=== PATIENT | female | born 1965 | race Caucasian/White ===

== ENCOUNTER 2016-07-13 12:39 | Emergency (ER) | payer OTHER ==
[2016-07-13 14:52] VITALS: BP 131/68
--- NOTE | 2016-07-13 14:52 | RAD ---
Indication: Trauma, neck injury. 4 views of lumbar spine demonstrates disc space narrowing at C5-C6. Vertebral bodies otherwise appear normal in height and alignment. Spinal canal appears grossly intact. IMPRESSION: Degenerative disc disease at C5-C6 with ventral osteophyte formation.
--- NOTE | 2016-07-13 14:53 | RAD ---
INDICATION: Left ankle trauma. TECHNIQUE: 3 views of the left ankle were obtained. FINDINGS: There is diffuse soft tissue swelling present. There are chronic posttraumatic changes within the distal tibia and fibula. No acute fracture is seen. There is severe osteoarthritic change in the tibiotalar joint. IMPRESSION: CHRONIC POSTTRAUMATIC CHANGE AND SEVERE OSTEOARTHRITIC CHANGE, NO EVIDENCE FOR ACUTE FRACTURE.
--- NOTE | 2016-07-13 14:53 | RAD ---
Indication: Left shoulder pain. Fall. 3 views of left shoulder demonstrates no fracture. No other bone or joint abnormality is noted. IMPRESSION: No fracture of the left shoulder is noted.
--- NOTE | 2016-07-13 14:55 | RAD ---
INDICATION: Left wrist injury. TECHNIQUE: 3 views of the left wrist were obtained. FINDINGS: There is diffuse soft tissue swelling. The bones are in normal alignment. No fracture is seen. Incidental note is made of mild osteoarthritic change in the first carpal metacarpal joint. IMPRESSION: NO EVIDENCE FOR FRACTURE, IF THE PATIENT'S SYMPTOMS PERSIST, RECOMMEND FOLLOW-UP IMAGING.
--- NOTE | 2016-07-13 14:55 | RAD ---
Indication: Left elbow injury. 4 views of left elbow demonstrates no definite fracture. There is an exostosis arising from the ventral aspect of the distal humerus. Fragmentation and calcification just distal to the olecranon process is noted which is likely due to sequela from degeneration or prior injury. IMPRESSION: No fracture is identified. Exostosis arising from the ventral aspect of the distal humerus. Probable loose bodies or sequela from prior injury with bony structures adjacent to the olecranon process. No joint effusion is noted.
--- NOTE | 2016-07-13 15:55 | UC ---
Minor Trauma HPI - HPI Summary HPI Summary: FALL THIS MORNING ONTO CONCRETE FLOOR, FALL ONTO LEFT SIDE. SINCE TIME OF INJURY HAS HAD LEFT SHOULDER, LEFT ANKLE, LEFT ELBOW AND LEFT WRIST PAIN. ELBOW AND ANKLE ARE WORSE. NO BRUISING OR SWELLING NOTICED. NO HEAD INJURY. MILD NECK PAIN, RADIATES TO LEFT SHOULDER. - History of Current Complaint Chief Complaint: UCUpperExtremity Stated Complaint: LEFT ELBOW PAIN (FALL) Time Seen by Provider: 07/13/16 13:54 Hx Obtained From: Patient, Family/Saw Straightener Hx Last Menstrual Period: irregular, Redd time was last one, is on progesterone for fibriods Onset/Duration: Sudden Onset, Lasting Hours, Still Present Onset Of Pain: Post Accident Severity Initially: Moderate Severity Currently: Moderate Mechanism Of Injury: Fall From A Standing Position, Twisted Aggravating Factor(s): Ambulation, Movement, Weight Bearing Alleviating Factor(s): Ice, OTC Meds, Rest Associated Signs And Symptoms: Negative: Loss Of Consciousness, Ecchymosis, Swelling - Risk Factors Penetrating Injury Risk Factors: Negative - Allergies/Home Medications Allergies/Adverse Reactions: Allergies Allergy/AdvReac Type Severity Reaction Status Date / Time Dust Mite Extract Allergy Unknown Verified 07/13/16 13:12 Reaction Details Milk Protein Extract Allergy Unknown Verified 07/13/16 13:12 [From Spiriva] Reaction Details Tiotropium [From Spiriva] Allergy Unknown Verified 07/13/16 13:12 Reaction Details Home Medications: Home Medications ALPRAZolam TAB* [Xanax TAB*] 0.5 mg PO BID PRN 07/13/16 [History Confirmed 07/13] Acetaminophen [Tylenol 8 Hour Arthritis] 650 mg PO DAILY PRN 07/13/16 [History Confirmed 07/13/16] Amitriptyline TAB* [Elavil TAB*] 100 mg PO BEDTIME 07/13/16 [History Confirmed 07/13/16] Cevimeline(NF) [Evoxac(NF)] 30 mg PO BID 07/13/16 [History Confirmed 07/13/16] Cyclobenzaprine TAB* [Flexeril 10 MG TAB*] 10 mg PO TID PRN 07/13/16 [History Confirmed 07/13/16] Ergocalciferol [Vitamin D2] 50,000 unit PO WEEKLY 07/13/16 [History Confirmed ] Ferrous Gluconate TAB* [Fergon TAB*] 325 mg PO BID 07/13/16 [History Confirmed 07/13/16] Gabapentin CAP(*) [Neurontin 300 CAP(*)] 300 mg PO TID 07/13/16 [History Confirmed 07/13/16] Hydrochlorothiazide TAB* [Hydrodiuril TAB*] 12.5 mg PO DAILY 07/13/16 [History Confirmed 07/13/16] Hyoscyamine Sulfate [Hyoscyamine Sulfate Sr] 0.375 mg PO DAILY 07/13/16 [ History Confirmed 07/13/16] Ipratropium HFA INHALER* [Atrovent Hfa Inhaler*] 2 puff INH QID 07/13/16 [ History Confirmed 07/13/16] Letrozole 2.5 mg PO DAILY 07/13/16 [History Confirmed 07/13/16] Levothyroxine TAB* [Synthroid TAB*] 200 mcg PO DAILY 07/13/16 [History Confirmed 07/13/16] Liraglutide [Victoza] 1 dose SUBCUT SEE INSTRUCTIONS 07/13/16 [History Confirmed 07/13/16] Mometasone NASAL (NF) [Nasonex (NF)] 2 spray NA DAILY 07/13/16 [History Confirmed 07/13/16] Mometasone/Formoter 200/5 MDI* [Dulera 200/5 MDI*] 2 puff INH BID 07/13/16 [ History Confirmed 07/13/16] NIFEdipine ER TAB* [Procardia Xl TAB*] 30 mg PO DAILY 07/13/16 [History Confirmed 07/13/16] Propranolol TAB* [Inderal TAB*] 20 mg PO BID 07/13/16 [History Confirmed ] Ranitidine HCl [Ranitidine Maximum Streng] 300 mg PO BEDTIME 07/13/16 [History Confirmed 07/13/16] Reguldid 2 cap PO AC 07/13/16 [History Confirmed 07/13/16] Spironolactone TAB* [Aldactone TAB*] 50 mg PO DAILY 07/13/16 [History Confirmed 07/13/16] buPROPion SR TAB* [Wellbutrin SR TAB*] 150 mg PO BID 07/13/16 [History Confirmed 07/13/16] busPIRone TAB* [Buspar TAB*] 10 mg PO TID 07/13/16 [History Confirmed 07/13/16] celeCOXIB CAP* [CeleBREX CAP*] 200 mg PO BID 07/13/16 [History Confirmed ] medroxyPROGESTERone TAB* [Provera TAB*] 10 mg PO BID 07/13/16 [History Confirmed 07/13/16] traMADol TAB* [Ultram*] 50 mg PO Q6HR PRN 07/13/16 [History Confirmed 07/13/16] PMH/Surg Hx/FS Hx/Imm Hx Previously Healthy: Yes Endocrine History Of: Reports: Diabetes - non insulin, Thyroid Disease - hypothyroid Cardiovascular History Of: Reports: Hypertension Respiratory History Of: Reports: Asthma - Surgical History Surgical History: Yes Surgery Procedure, Year, and Place: cataracts ages [age], and 8. 2000: Uvula removed and shortened top palate for sleep apnea: [place]. 2006: Gallbladder : Dr Brenda [facility]. 2016: Ulnar nerve: Dr Romero [facility]. 2015: T&A and hyoid suspension: Dr Kodi [facility]. 2015: repair incarcerated hernia: Dr Nash [facility]. 2015: Nasal surgery to open nostril: Dr Kodi [facility]. D&C x2: Dr Witt. Eye lens replacement: [place] - Family History Known Family History: Positive: Cardiac Disease - Social History Lives: With Family Alcohol Use: None Substance Use Type: None Smoking Status (MU): Never Smoked Tobacco - Immunization History Most Recent Influenza Vaccination: 01/2016 Most Recent Pneumonia Vaccination: had once about 2014 Review of Systems Constitutional: Negative Skin: Bruising Eyes: Negative ENT: Negative Respiratory: Negative Cardiovascular: Negative Gastrointestinal: Negative Genitourinary: Negative Motor: Negative Neurovascular: Negative Musculoskeletal: Arthralgia - LEFT ANKLE LEFT SHOULDER LEFT ELBOW, Myalgia Neurological: Negative Psychological: Negative All Other Systems Reviewed And Are Negative: Yes Physical Exam Triage Information Reviewed: Yes Appearance: Well-Appearing, No Pain Distress, Well-Nourished, Obese Vital Signs: Initial Vital Signs Temp 96.8 F 07/13/16 13:01 Pulse 89 07/13/16 13:01 Resp 14 07/13/16 13:01 BP 131/66 07/13/16 13:01 Pulse Ox 100 07/13/16 13:01 Vital Signs Reviewed: Yes Eye Exam: Normal Eyes: Positive: Conjunctiva Clear ENT Exam: Normal ENT: Positive: Normal ENT inspection, Hearing grossly normal, Pharynx normal, TMs normal Dental Exam: Normal Neck exam: Normal Neck: Positive: Supple, Nontender, No Lymphadenopathy Respiratory Exam: Normal Respiratory: Positive: Chest non-tender, Lungs clear, Normal breath sounds, No respiratory distress, No accessory muscle use Cardiovascular Exam: Normal Cardiovascular: Positive: RRR, No Murmur, Pulses Normal, Brisk Capillary Refill Abdominal Exam: Normal Abdomen Description: Positive: Nontender, No Organomegaly Musculoskeletal: Positive: ROM Intact, Strength Limited @ - LEFT ELBOW; LEFT ANKLE., Other: - LEFT NECK PAIN RADIATES TO SHOULDER, LEFT ELBOW PAIN, LEFT ANKLE PAIN. Neurological Exam: Normal Psychological Exam: Normal Psychological: Positive: Normal Response To Family Skin Exam: Normal UC Physical Exam Triage Information Reviewed: Yes Vital Signs On Initial Exam: Initial Vitals Temp Pulse Resp BP Pulse Ox 96.8 F 89 14 131/66 100 07/13/16 13:01 07/13/16 13:01 07/13/16 13:01 07/13/16 13:01 07/13/16 13:01 Vital Signs Reviewed: Yes Appearance: Well-Appearing, Obese, Signs of Trauma - PATIENT REEXAMINED AFTER SLIP AND FALL IN XRAY DEPARTMENT. NO NEW SYMPTOMS REPORTED. THE PATIENT IS WELL NOURISHED IN NO DISTRESS. REPORTS NO ADDITIONAL INJURY AFTER FALL. THE SKIN IS WARM AND DRY AND SKIN COLOR REFLECTS ADEQUATE PERFUSION heent: THE HEAD IS NORMOCEPHALIC AND ATRAUMATIC. THE PUPILS ARE EQUAL AND REACTIVE. THE CONJUNCTIVAE ARE CLEAR AND WITHOUT DRAINAGE. NARES ARE PATENT AND WITHOUT DRAINAGE. MOUTH REVEALS MOIST MUCUS MEMBRANES AND THE THROAT IS WITHOUT ERYTHEMA AND EXUDATE. THE EXTERNAL EARS ARE INTACT. THE EAR CANALS ARE PATENT AND WITHOUT DRAINGE. THE TYMPANIC MEMBRANES ARE INTACT. respiratory: CHEST IS NONTENDER. LUNGS ARE CLEAR TO AUSCULTATION AND BREATH SOUNDS ARE SYMMETRICAL AND EQUAL. cardiovascular: HEART HAS A REGULAR RATE AND RHYTHM. THERE IS NO RUB AUSCULTATED. NO PERIPHERAL EDEMA AND PULSES ARE SYMMETRICAL AND EQUAL. NO MURMUR AUSCULTATED. abdomen: ABDOMEN IS NONDISTENDED. NORMAL BOWEL SOUNDS IN ALL FOUR QUADRANTS. NO PAIN TO PALPITATION IN QUADRANTS. musculoskeletal: THERE IS NO BACK PAIN NOTED. EXTREMITIES ARE NONTENDER WITH FULL RANGE OF MOTION WITH THE EXCEPTION OF REPORTED AREA OF COMPLAINT, LEFT ANKLE, LEFT ELBOW, LEFT SHOULDER, AND NO CHANGE IN THOSE COMPLAINTS FOLLOWING FALL IN XRAY. . THERE IS GOOD CAPILLARY REFILL. THERE IS NO PERIPHERAL EDEMA OR CALF TENDERNESS ELICITED. neuro: PATIENT IS ALERT AND ORIENTED TO PERSON PLACE AND TIME. PATIENT HAS SYMMETRICAL MOTOR STRENGTH IN ALL EXTREMITIES. psychiatric: THE PATIENT HAS AN APPROPRIATE AFFECT AND DOES NOT EXHIBIT ANY ANXIETY OR DEPRESSION. Procedures - Procedure Summary Procedure Summary: VIKTORIA WRAP APPLIED BY SOPHIA TO LEFT ELBOW, WELL ORTHOGLASS STIRRUP SPLINT APPLIED TO LEFT ANKLE USING ORTHOGLASS, PROTECTIVE GAUZE, VIKTORIA WRAP, AND POST-OP SHOE.. PATIENT STATED SHE HAD WALKER AT HOME. Minor Trauma Course/Dx - Differential Dx/Diagnosis Differential Diagnosis/HQI/PQRI: Contusion(s), Sprain, Strain Provider Diagnoses: LEFT ANKLE SPRAIN. LEFT ELBOW SPRAIN, OSTEOARTHRITIS. CERVICAL STRAIN. LEFT WRIST STRAIN. LEFT SHOULDER PAIN Discharge - Discharge Plan Condition: Stable Disposition: HOME Patient Education Materials: Ankle Sprain (ED), Contusion in Adults (ED), Elbow Sprain (ED), Shoulder Sprain (ED), RICE Therapy (ED), Fall Prevention (ED) Referrals: Imtiaz Mandujano MD [Medical Doctor] - Nina MADISON,Chuy Mccullough [Primary Care Provider] - Yannick Bustillo MD [Medical Doctor] -
== END 2016-07-13 16:05 | disposition home or self-care (01) ==
LOC: UCCORT 12:39
DX: S93.402A Sprain of unspecified ligament of left ankle, initial encounter (principal); S53.402A Unspecified sprain of left elbow, initial encounter; M19.022 Primary osteoarthritis, left elbow; S16.1XXA Strain of muscle, fascia and tendon at neck level, initial encounter; S66.912A Strain of unspecified muscle, fascia and tendon at wrist and hand level, left hand, initial encounter; W19.XXXA Unspecified fall, initial encounter; Y93.9 Activity, unspecified; Y92.9 Unspecified place or not applicable; M25.512 Pain in left shoulder; E11.9 Type 2 diabetes mellitus without complications; E03.9 Hypothyroidism, unspecified; J45.909 Unspecified asthma, uncomplicated; Z90.49 Acquired absence of other specified parts of digestive tract; E66.9 Obesity, unspecified
CPT/HCPCS: 72040; 99213; G0463

== ENCOUNTER 2017-09-27 06:09 | Inpatient (IN) | payer OTHER ==
[~2017-09-27 06:09] MED LIST: Buffered Lidocaine 0.9% SYRIN* 5 ML/SYR SYRINGE INTRADERM ONE; Sodium Citrate/Citric Acid* 15 ML UDC PO ONE
[2017-09-27] MEDS ORDERED: Sodium Citrate/Citric Acid* 15 ML UDC ONE (06:10)
[2017-09-27] MEDS ORDERED: Heparin VIAL(*) 5000 UNITS/ML VIAL (FIVE THOUSAND) ONE (06:10)
[2017-09-27] MEDS ORDERED: ceFAZolin 2 GM PREMIX (*) 2 GM/50 ML BAG IVPB ONE ×2 (06:10→11:41)
[2017-09-27] MEDS ORDERED: ceFAZolin 1 GM in Dextrose (*) 1 GM/50 ML BAG IVPB ONE ×2 (06:10→11:41)
[2017-09-27] MEDS ORDERED: Propofol* 10 MG/ML 20 ML BTL IV PUSH ONE (07:08)
[2017-09-27] MEDS ORDERED: Ondansetron ODT TAB* 4 MG ONE (07:08)
[2017-09-27] MEDS ORDERED: Lidocaine 2% PF * 5 ML VIAL ONE (07:08)
[2017-09-27] MEDS ORDERED: Dexamethasone IV* 4 MG/ML 1 ML (4 MG) ONE (07:08)
[2017-09-27] MEDS ORDERED: Ketorolac INJ* 30 MG/ML 1 ML VIAL ONE (07:09)
[2017-09-27] MEDS ORDERED: fentaNYL* 50 MCG/ML 5 ML VIAL (250 MCG VIAL) ONE (07:09)
[2017-09-27] MEDS ORDERED: Rocuronium* 10 MG/ML VIAL ONE ×2 (07:09→09:13)
[2017-09-27] MEDS ORDERED: Midazolam* 1 MG/ML 5 ML VIAL (5 MG) ONE (07:09)
[2017-09-27] MEDS ORDERED: Methylene Blue 0.5 %* 50 MG/10 ML AMP IV ONE (07:12)
[2017-09-27] MEDS ORDERED: Bupivacaine 0.25% SDV* 30 ML ONE ×2 (07:12→08:19)
[2017-09-27] MEDS ORDERED: EPHEDrine (Pressors)* 50 MG/ML VIAL ONE (08:20)
[2017-09-27] MEDS ORDERED: Phenylephrine INJ* 10 MG/ML 1 ML VIAL (10 MG) ONE (09:18)
[2017-09-27] MEDS ORDERED: fentaNYL* 50 MCG/ML 2 ML VIAL (100 MCG VIAL) ONE ×5 (09:47→13:00)
[2017-09-27] MEDS ORDERED: Naloxone* 0.4 MG/ML 1 ML VIAL IV PRN (10:47)
[2017-09-27] MEDS ORDERED: fentaNYL* 50 MCG/ML 2 ML VIAL (100 MCG VIAL) IV PRN (10:47)
[2017-09-27] MEDS ORDERED: Ondansetron ODT TAB* 4 MG PO PRN (10:47)
[2017-09-27] MEDS ORDERED: HYDROmorphone INJ* 2 MG/ML CARPUJECT SYRINGE IV PRN (12:07)
[2017-09-27] MEDS ORDERED: HYDROcodone/ACET. 7.5/325 LIQ* 15 ML UDC PO PRN (12:07)
[2017-09-27] MEDS ORDERED: diPHENhydraMINE IV* 50 MG/ML 1 ml VIAL (BENADRYL) SLOW PUSH PRN (12:07)
[2017-09-27] MEDS ORDERED: Ondansetron 40 MG VIAL* 2 MG/ML 20 ML VIAL IV PRN (12:07)
--- NOTE | 2017-09-27 12:07 | BRIEFOPN ---
Brief Operative Note - Surgery Procedures: Pre-OP Diagnoses: Clinically severe obesity Post-op Diagnosis: same Procedure: Laparoscopic Christine an Y gastric bypass Surgeon: Andrzej Asst: [place] Anethesia: GETA Toal EBL: <50cc IVF: 3500cc LR Specimen: none Drains: #10 ERNIE at GJ
[2017-09-27] MEDS ORDERED: Dextrose 50% Syringe 50 ML* 25 GM/50 ML SYRINGE IV PUSH PRN (12:14)
[2017-09-27] MEDS ORDERED: Metoprolol Tartrate IV* 1 MG/ML 5 ML VIAL IV PRN (12:15)
[2017-09-27] MEDS ORDERED: HYDROmorphone INJ* 2 MG/ML CARPUJECT SYRINGE ONE (14:51)
[2017-09-27] MEDS: Heparin VIAL(*) 5000 UNITS/ML VIAL (FIVE THOUSAND) SUBCUT SCH ×2 (15:16→21:42)
[2017-09-27] MEDS: Ketorolac INJ* 30 MG/ML 1 ML VIAL IV PRN ×2 (17:59→23:56)
[2017-09-27] MEDS: Insulin LISPRO* 1 UNITS UNIT SUBCUT SCH ×2 (18:10→23:53)
[2017-09-27] MEDS: Famotidine IV* 10 MG/ML 2 ML (20 mg) IV SLOW PU SCH (21:41)
[2017-09-28] MEDS: Ketorolac INJ* 30 MG/ML 1 ML VIAL IV PRN ×2 (06:03→22:10)
[2017-09-28] MEDS: Heparin VIAL(*) 5000 UNITS/ML VIAL (FIVE THOUSAND) SUBCUT SCH ×3 (06:04→22:11)
[2017-09-28] MEDS: Insulin LISPRO* 1 UNITS UNIT SUBCUT SCH ×3 (06:05→18:24)
[2017-09-28] MEDS: Levothyroxine INJ* 100 MCG/5 ML VIAL IV SCH (06:05)
[2017-09-28] MEDS: Famotidine IV* 10 MG/ML 2 ML (20 mg) IV SLOW PU SCH ×2 (09:39→20:09)
--- NOTE | 2017-09-28 11:25 | RAD ---
INDICATION: 1 day postop Christine-en-Y gastric bypass. COMPARISON: None. TECHNIQUE: The patient swallowed Gastrografin in standing position under fluoroscopic observation. Multiple spot images of the esophagus, stomach, and proximal small bowel were obtained. 0.2 minutes fluoroscopy. FINDINGS: Ingested contrast passes from the stomach through the gastric pouch to the Christine limb without delay. No enteric leak evident. Epigastric surgical drain in place. Gallbladder fossa level surgical clips. IMPRESSION: Unremarkable one day postop appearance following Christine-en-Y gastric bypass. CPT II Codes: G9500
--- NOTE | 2017-09-28 12:03 | PN ---
Progress Note - Progress Note Date of Service: 09/28/17 Note: Surgery Progress: S: POD #1. Seen with Dr. Donnelly. c/o some pain, controlled. No N/V. ?flatus. OOB and ambulated. O: Vital Signs - 8 hr 09/28/17 09/28/17 07:31 08:00 Temperature 97.6 F Pulse Rate 94 Respiratory 16 16 Rate Blood Pressure 127/57 (mmHg) O2 Sat by Pulse 96 96 Oximetry Intake and Output Last 24 Hours 09/26/17 09/27/17 09/28/17 09/29/17 06:59 06:59 06:59 06:59 Intake Total 5080 Output Total 945 35 Balance 4135 -35 Weight 330 lb Intake: IV Fluids 5080 LR 4980 NS 50ML, Cefazolin 1G 50 NS 50ML, Cefazolin 2G 50 Oral 0 Output: ERNIE #1 170 35 [place] 775 Gen: NAD (just had awakened) Heart: reg Lungs: clear Abd: obese; lap sites ok; small amt of bloody drainage around ERNIE; soft; mild incisional tenderness only UGI: no leak; patent bypass A: s/p lap RYGB, doing well P: will start swati clear liqs; keep IVF and [place] until later in the day 2/2 relatively low UOP
[2017-09-28] MEDS: D5W 1/2 NS KCl 20 Meq 1000 ML* 1,000 ML IV SCH ×2 (12:11→20:08)
--- NOTE | 2017-09-28 14:35 | PN ---
Progress Note - Progress Note Date of Service: 09/28/17 SOAP: Subjective: []Pt seen and examined at bedside. Pt s/p laparoscopic Christine-en-Y gastric bypass by Dr. Donnelly 09/27/17. Pt reports she is doing well. Tolerating bariatric clear liquids well. No N/V. Pt reports one solid BM that was song/brown and firm in consistency. Reports flatus. Denies abdominal distention Reports voiding (clear/yellow) one time since sommer catheter was removed approx 1 hr ago. Denies dysuria or hematuria Minimal abdominal pain 1/10 in the supraumbilical area Denies fever/chills. Denies calf pain/swelling Pt reports she has ambulated 2x around unit. Objective: [] Vital Signs 09/28/17 09/28/17 09/28/17 07:31 08:00 11:30 Temperature 97.6 F 98.0 F Pulse Rate 94 97 Respiratory 16 16 16 Rate Blood Pressure 127/57 125/93 (mmHg) O2 Sat by Pulse 96 96 95 Oximetry Const: Obese female sitting upright in chair. Pt in NAD. Heart: RRR. Regular S1. Regular S1. No murmurs/rubs/gallop auscultated- but difficult to examine d/t body habitus Lungs: Symmetric chest expansion. CTA in all jacobsen. No wheezes/rhonchi/rales. Abd: Obese. Minimal incisional tenderness. Remaining abdomen is soft, nontender. Dressings intact over incision sights. +BS throughout. ERNIE Drain: small amount of bloody drainage around ERNIE drain. Draining serosanguineous fluid. Ext: Warm. 2+ pedal pulses. No pedal edema. Assessment: [] Pt 1 day s/p lap Christine-en-Y gastric bypass and doing well. Pt afebrile. VSS. Minimal abdominal pain and tolerating bariatric clear liquids. Plan: []Continue DVT prophylaxis. Continue bariatric clear liquid diet Encourage ambulation Encourage incentive spirometry Findings and plan discussed with patient at bedside. Will discuss and update with surgical team. <Kathe Maldonado - Last Filed: 09/28/17 14:22> - Progress Note SOAP: I saw and evaluated the patient. Agree with student's note. <Josemanuel Donnelly - Last Filed: 09/29/17 08:25>
[2017-09-29] MEDS: Levothyroxine INJ* 100 MCG/5 ML VIAL IV SCH (05:59)
[2017-09-29] MEDS: Heparin VIAL(*) 5000 UNITS/ML VIAL (FIVE THOUSAND) SUBCUT SCH (06:00)
[2017-09-29] MEDS: Insulin LISPRO* 1 UNITS UNIT SUBCUT SCH (06:01)
[2017-09-29] MEDS: Famotidine IV* 10 MG/ML 2 ML (20 mg) IV SLOW PU SCH (08:34)
--- NOTE | 2017-09-29 09:09 | OP ---
CC: [facility]; WILLIAM Nevarez * DATE OF OPERATION: 09/27/17 - ROOM #351 DATE OF : 69 SURGEON: Josemanuel Donnelly MD DIRECTOR CALL: WILLIAM Ontiveros ANESTHESIOLOGIST: Frandy Huertas MD ANESTHESIA: General anesthesia. PRE-OP DIAGNOSES: 1. Clinically severe obesity. 2. Hypertension. 3. Insulin resistance. 4. Obstructive sleep apnea. POST-OP DIAGNOSES: 1. Clinically severe obesity. 2. Hypertension. 3. Insulin resistance. 4. Obstructive sleep apnea. OPERATIVE PROCEDURE: Laparoscopic Christine-en-Y gastric bypass. ESTIMATED BLOOD LOSS: 50 cc. IV FLUIDS: 3500 cc of lactated Ringer's. SPECIMEN: None. DRAINS: #10 ERNIE drain left at the gastrojejunostomy. COUNTS: Lap pad count and instrument count correct at the end of the procedure. CONDITION: The patient was extubated and transferred to the PACU in stable condition. DESCRIPTION OF PROCEDURE: Ms. Mead was identified in the preoperative area , marked. Consent was signed, after I discussed the case with her and her partner the procedure and potential complications. The patient was taken to the operating room, placed on the operating table in the supine position. Preoperative antibiotics were given, sequential devices were placed on bilateral lower extremities, general anesthesia was induced. The patient's abdomen was prepped and draped in the standard surgical fashion. A time-out was performed. A left upper quadrant incision was made at the midclavicular line just 2 fingerbreadths below the costal margin. This was deepened down to the anterior fascia, which was elevated, and a Veress needle was inserted into the abdominal cavity, which was allowed to insufflate to a pressure 15 mmHg. The patient tolerated the insufflation well. The Veress needle was removed and a 12-mm trocar was inserted through this. Laparoscope was inserted and there was no evidence of injury from the trocar insertion. View of the abdomen showed small adhesions to the anterior abdominal wall of the umbilicus. The patient had a previous incarcerated and strangulated umbilical hernia repair. There was a large defect at this site and a picture was taken. Additional trocars were placed in the following position: A 12 mm in the upper midline and a 5 mm at the left upper quadrant. LigaSure device was used to take down adhesions to the anterior abdominal wall at the umbilicus site and hernia was identified. The omental fat was reduced through a small herniation within the larger defect. Additional trocars were placed in the following position: A 12 mm and a 5 mm in the right upper quadrant. Attention was then turned towards the transverse colon. The omentum was reflected superiorly. The transverse colon was retracted anteriorly and the ligament of Treitz was identified. We counted off approximately 50 cm from the ligament of Treitz and transected the bowel at this site with a 45-mm lora JULIO CESAR stapling device. The mesentery was undercut with LigaSure device and the proximal portion, which would become the biliopancreatic limb, was held and an enterotomy made at this site. Next, approximately 100 cm was counted off; this would become Christine limb. Another enterotomy was created and the biliopancreatic limb was mated with this with a 60- mm JULIO CESAR stapling device. The common defect was reapproximated with interrupted 2-0 silk sutures and the mesenteric defect was similarly closed. Next, attention was then turned towards this omentum. The small bowel Christine limb was then retracted superiorly. It appeared that we would benefit from splitting omentum and this was performed with LigaSure device starting at the transverse colon and extending it up towards the stomach. Once the omentum was split, the table was placed in a steep reverse Trendelenburg. Next, a Jorge L retractor was inserted through a subxiphoid incision. We attempted to reflect the liver anteriorly into the right, but there were adhesions to lesser omentum and duodenum. They were taken down with both electrocautery and sharp dissection to allow for this very large liver to be retracted up to expose the proximal stomach. Once this proximal stomach was exposed, we were able to grasp the gastroesophageal fat pad and retracted towards the right lower quadrant. Blunt dissection was carried out to expose portion of the left tomasz. This was difficult to spot and visualization was limited. The spleen was identified and also mildly large. The liver was little large, showed no discrete lesions. Next, a retrogastric tunnel was made along the lesser curvature approximately the third crossing vessel. A 45-mm lora JULIO CESAR stapling device was fired at this site. We did use a clip retail greeter along the staple edge on the stomach remnant as well as on the corner of what would become the gastric pouch. This gastric pouch was then completed with two additional 60-mm stapling devices; first a lora stapler and then a purple with reinforcement strips. We assured our sizing over an Nathen tube prior to fire any rosalba. The pouch appeared intact of appropriate size. Next, the small bowel Christine limb was then brought in apposition to the gastric pouch. Stay sutures with 2-0 silk were utilized taking it with the antimesenteric border of the Christine and suturing it to the lateral staple edge of the stomach pouch. Next, a gastrotomy was made over the Nathen tube and an enterotomy was made. The tube was mated with 30-mm lora JULIO CESAR stapling device. The common defect was then reapproximated with a running 3-0 PDS suture starting superiorly and inferiorly and tying them in the middle. Additional layer of silk sutures were utilized. Next, the anastomosis was tested with methylene blue dye test passing the Nathen tube into the Christine limb. We clamped the small bowel beyond the tube and then the anesthesiologist injected methylene blue until the proximal Christine limb and stomach distended. No dye was appreciated throughout the staple and suture line. We did see some blue dye through a small serosal area of the proximal Christine limb and this was bolstered with interrupted 2-0 silk sutures imbricating this area. The Nathen tube was removed after suctioning out the blue dye. The # 10 ERNIE drain was then inserted into the abdominal cavity and placed into the gastrojejunostomy and brought out through the lateral most port site and suture to the skin with 3-0 Prolene sutures. Review of the abdomen showed the jejunojejunostomy intact and in appropriate orientation. The abdomen was allowed to collapse and all trocars were removed under direct vision and the additional 5 skin incisions were reapproximated with 4-0 Monocryl subcuticular sutures. Steri-Strips and sterile dressing were applied. The patient tolerated the procedure well, was woken up in the OR, and transferred to the PACU in stable condition. [id number]/[facility] #: [id number] CHUCK
--- NOTE | 2017-09-29 09:22 | PN ---
Progress Note - Progress Note Date of Service: 09/29/17 Note: S: POD #2. Has done well w/ po intake of clears. Passing flatus and had a BM. Pain controlled. Ambulating; voiding well. O: Vital Signs - 8 hr 09/29/17 09/29/17 09/29/17 01:23 03:06 08:34 Temperature 98.0 F Pulse Rate 97 Respiratory 15 18 Rate Blood Pressure 127/73 (mmHg) O2 Sat by Pulse 99 94 Oximetry Intake and Output Last 24 Hours 09/27/17 09/28/17 09/29/17 09/30/17 06:59 06:59 06:59 06:59 Intake Total 5080 1576 Output Total 945 1885 50 Balance 4135 -309 -50 Weight 330 lb Intake: IV Fluids 5080 841 LR 4980 841 NS 50ML, Cefazolin 1G 50 NS 50ML, Cefazolin 2G 50 Oral 0 735 Output: ERNIE #1 170 85 50 Urine 1500 [place] 775 300 Other: # Bowel Movements 1 Estimated Stool Amount Large # Voids 2 Heart: reg Lungs: clear Abd: obese; +BS; ERNIE w/ light sero-sang drainage. Soft; mild incisional tenderness. A: s/p lap Christine en Y gastric bypass; doing well P: discussed w/ Dr. Donnelly; will d/c ERNIE; home today; instructions reviewed.
[2017-09-29 11:41] VITALS: BP 146/76
--- NOTE | 2017-09-30 12:18 | DS ---
CC: WILLIAM Nevarez; [facility] * DISCHARGE SUMMARY: DATE OF ADMISSION: 09/27/17 DATE OF DISCHARGE: 09/29/17 ATTENDING SURGEON: Josemanuel Donnelly MD * (DICTATED BY WILLIAM SWEENEY) HOSPITAL COURSE: Please refer to admission history and physical and operative note for details. The patient underwent a laparoscopic Christine-en-Y gastric bypass on 09/27/17. Her postoperative course has been uneventful. She had an upper GI study in the morning of postoperative day 1 which was normal. She was initiated on bariatric clear liquids and has progressed to the point whereas of this morning her oral intake is adequate and her pain is under good control. The patient was seen with Dr. Donnelly the morning of discharge. She is afebrile with stable vital signs. Heart: Regular rate and rhythm. Lungs: Clear to auscultation. Abdomen: Laparoscopic incision sites without active bleeding or signs of infection. The Reese Guzman drain was removed prior to discharge and a dry sterile dressing placed. The patient will be discharged on her home medications with the following exceptions: She will hold her Victoza as her fingersticks in the hospital have been 143 or less, she will check her fingersticks and report those when she returns for follow up both at [facility] and with her primary care provider, WILLIAM Nevarez. She will also hold her diuretics. She will continue propranolol and lisinopril. Her other medications she will resume as able. She understands the dietary guidelines and does have followup with both offices already scheduled. WILLIAM SWEENEY [id number]/CPS #: [id number] MTDD
== END 2017-09-29 13:25 | disposition home or self-care (01) | DRG 403 ==
LOC: AA 06:09 → SSU 14:48
PROVIDERS: ADMIT Surgery; ATTEND Surgery
PROC: 0D164ZA Bypass Stomach to Jejunum, Percutaneous Endoscopic Approach (ICD-10-PCS; principal; 2017-09-27 07:30)
DX: E66.01 Morbid (severe) obesity due to excess calories (principal); G47.33 Obstructive sleep apnea (adult) (pediatric); I10 Essential (primary) hypertension; J45.909 Unspecified asthma, uncomplicated; J30.2 Other seasonal allergic rhinitis; K21.9 Gastro-esophageal reflux disease without esophagitis; K58.9 Irritable bowel syndrome, unspecified; E11.43 Type 2 diabetes mellitus with diabetic autonomic (poly)neuropathy; K31.84 Gastroparesis; F41.9 Anxiety disorder, unspecified; F32.9 Major depressive disorder, single episode, unspecified; E03.9 Hypothyroidism, unspecified; M79.7 Fibromyalgia; I73.00 Raynaud's syndrome without gangrene; Z96.1 Presence of intraocular lens; M19.079 Primary osteoarthritis, unspecified ankle and foot; M16.0 Bilateral primary osteoarthritis of hip; M17.0 Bilateral primary osteoarthritis of knee; G43.909 Migraine, unspecified, not intractable, without status migrainosus; Z96.0 Presence of urogenital implants; G89.29 Other chronic pain; E88.81 Metabolic syndrome and other insulin resistance; K42.9 Umbilical hernia without obstruction or gangrene; Z88.8 Allergy status to other drugs, medicaments and biological substances; Z85.828 Personal history of other malignant neoplasm of skin; Z98.42 Cataract extraction status, left eye; Z98.41 Cataract extraction status, right eye; Z90.49 Acquired absence of other specified parts of digestive tract; Z82.49 Family history of ischemic heart disease and other diseases of the circulatory system; Z82.61 Family history of arthritis; Z56.0 Unemployment, unspecified; Z68.43 Body mass index [BMI] 50.0-59.9, adult
CPT/HCPCS: 74246; 81025; A9270-GY; C1776; J0690; J1100; J1170; J1644; J1885; J2250; J2704; J3010

== ENCOUNTER 2018-12-28 08:10 | Emergency (ER) | payer OTHER ==
--- OUTSIDE RECORDS SUMMARY | 2018-12-28 08:23 | XMS REPORT | Continuity of Care Document ---
:1965 External Reference #:[id number] Author Name Lindsay Campbell MD Address [address] [place] [id number] Care Team Providers Name Role Phone Chuy Wood PA - Medical Care Team Information Program Management Specialist [phone] Problems Active Problems Provider Date Localized, primary osteoarthritis Grupo Carr MD, FACS Onset: 2012 Breast signs and symptoms Wayne Cao MD Onset: 07/10/2013 Small bowel obstruction Onset: 09/24/2014 Liver function tests abnormal Onset: 09/24/2014 Lower urinary tract infectious disease Onset: 01/05/2014 Sepsis Onset: 01/04/2014 Tachycardia Onset: 01/04/2014 Pyelonephritis Onset: 01/03/2014 Kidney stone Onset: 01/01/2014 Lesion of ulnar nerve Yannick Porras M.D. 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 Onset: 08/27/2018 Urgent desire to urinate Kevin Johnson PA Onset: 08/27/2018 Increased frequency of urination Kevin Johnson PA Onset: 08/27/2018 Social History Type Date Description Comments Sex Unknown Tobacco Use Start: Unknown Never Smoked Cigarettes ETOH Use Has consumed alcohol in the past Tobacco Use Start: Unknown Patient has never smoked Recreational Drug Use Denies Drug Use Smoking Status Reviewed: 12/06/18 Patient has never smoked Allergies, Adverse Reactions, Alerts Active Allergies Reaction Severity Comments Date Spiriva rash rash and hives 05/06/2015 Environmental 06/21/2018 Medications Active Medications SIG Qnty Indications Ordering Date Provider Rachel HFA inhale 2 12.9units Julia, 08/31/2015 17mcg/Act Aerosol puffs four Bethany, DO times a day if needed Fiber Laxative Chuy Wood, 0.52gm Capsules PA SM Pain Reliever Extra Chuy Wood, Strength PA 500mg Tablets Azelastine HCL (Nasal) 1-2 sprays Rk, 0.1% daily Jesica, CANDLE MOLDER Solution Cetirizine HCL 1 daily EstebanchelseaChuy, 10mg Tablets PA Mirtazapine 1 at hs Blas Woodel, 15mg Tablets PA Tizanidine HCL 1 by mouth Unknown 4mg Capsules three times daily Nystop as needed EstebanchelseaChuy, 197776Kvpz/GM Powder PA Cevimeline HCL 1 by mouth Unknown 30mg Capsules three a day Buspirone HCL 1 by mouth Unknown 10mg Tablets three times a day as needed Alprazolam 1 by mouth Unknown 0.5mg Tablets bid Medroxyprogesterone 1 by mouth Unknown Acetate bid 10mg Tablets Ferrous Sulfate 1 by mouth Unknown 325(65Fe) mg bid Tablets Nifedical XL Qday only Unknown 30mg Tablets ER 24HR uses in winter Gabapentin 3 Times Daily 90caps Unknown 300mg Capsules Proair HFA 2 puffs every 3units Unknown 108(90Base) mcg/Act 4 hours as Aerosol needed Levothyroxine Sodium by mouth Unknown 200mcg every day Tablets History Medications Tramadol HCL 1 tablet by 10tabs M75.42 Lindsay Campbell, 10/16/2018 - 50mg mouth every 24 MD 12/06/2018 Tablets hours as needed pain Tamsulosin HCL 1 by mouth 14caps Ferdinand Rose, 09/11/2018 - 0.4mg every day M.D. 10/16/2018 Capsules Medications Administered in Office Medication SIG Qnty Indications Ordering Provider Date Depomedrol 40mg/1cc Eileen Lord, 12/06/2018 (methylprednisolone acetate) RPAC Injection Depomedrol 40mg/1cc Eileen Lord, 12/06/2018 (methylprednisolone acetate) RPAC Injection Depomedrol 40mg/1cc Eileen Lord, 11/01/2018 (methylprednisolone acetate) RPAC Injection Depomedrol 40mg/1cc Lindsay Campbell MD 10/29/2018 (methylprednisolone acetate) Injection Depomedrol 40mg/1cc Eileen Lord, 09/20/2018 (methylprednisolone acetate) RPAC Injection Depomedrol 40mg/1cc Eileen Lord, 09/07/2018 (methylprednisolone acetate) RPAC Injection Depomedrol 40mg/1cc Eileen Lord, 08/02/2018 (methylprednisolone acetate) RPAC Injection Depomedrol 40mg/1cc Eileen Lord, 06/21/2018 (methylprednisolone acetate) RPAC Injection Depo-Medrol 20mg Eileen Lord, 06/21/2018 Injection RPAC Methylprednisolone acetate Eileen Lord, 06/07/2018 (Depomedrol) 80mg injection RPAC Injection Methylprednisolone acetate Eileen Lord, 02/27/2018 (Depomedrol) 80mg injection RPAC Injection Methylprednisolone acetate Eileen Lord, 02/16/2018 (Depomedrol) 80mg injection RPAC Injection Methylprednisolone acetate Eileen Lord, 11/27/2017 (Depomedrol) 80mg injection RPAC Injection Methylprednisolone acetate Eileen Lord, 10/17/2017 (Depomedrol) 80mg injection RPAC Injection Depomedrol 40mg/1cc Eileen Lord, 08/18/2017 (methylprednisolone acetate) RPAC Injection Methylprednisolone acetate Eileen Lord, 07/11/2017 (Depomedrol) 80mg injection RPAC Injection Methylprednisolone acetate Eileen Lord, 05/18/2017 (Depomedrol) 80mg injection RPAC Injection Methylprednisolone acetate Eileen Lord, 05/18/2017 (Depomedrol) 80mg injection RPAC Injection Methylprednisolone acetate Lord, Eileen S., 03/30/2017 (Depomedrol) 80mg injection RPAC Injection Methylprednisolone acetate LordEileen amezquita S., 01/26/2017 (Depomedrol) 80mg injection RPAC Injection Depomedrol 40mg/1cc Lord, Eileen S., 01/26/2017 (methylprednisolone acetate) RPAC Injection Methylprednisolone acetate LordEileen amezquita S., 01/03/2017 (Depomedrol) 80mg injection RPAC Injection Methylprednisolone acetate LordEileen amezquita S., 10/26/2016 (Depomedrol) 80mg injection RPAC Injection Methylprednisolone acetate LordEileen amezquita S., 09/13/2016 (Depomedrol) 80mg injection RPAC Injection Methylprednisolone acetate LordEileen amezquita S., 07/22/2016 (Depomedrol) 80mg injection RPAC Injection Depomedrol 40mg/1cc Eileen Lord S., 07/22/2016 (methylprednisolone acetate) RPAC Injection Methylprednisolone acetate LordEileen amezquita S., 06/08/2016 (Depomedrol) 80mg injection RPAC Injection Methylprednisolone acetate LordEileen amezquita S., 04/07/2016 (Depomedrol) 80mg injection RPAC Injection Methylprednisolone acetate Eileen Lord S., 02/22/2016 (Depomedrol) 80mg injection RPAC Injection Depomedrol 40mg/1cc Eileen Lord S., 02/22/2016 (methylprednisolone acetate) RPAC Injection Methylprednisolone acetate Eileen Lord S., 11/19/2015 (Depomedrol) 80mg injection RPAC Injection Depomedrol 40mg/1cc Eileen Lord S., 11/19/2015 (methylprednisolone acetate) RPAC Injection Methylprednisolone acetate LordEileen amezquita S., 08/20/2015 (Depomedrol) 80mg injection RPAC Injection Depomedrol 40mg/1cc Eileen Lord S., 08/20/2015 (methylprednisolone acetate) RPAC Injection Methylprednisolone acetate Eileen Lord S., 05/20/2015 (Depomedrol) 80mg injection RPAC Injection Depomedrol 40mg/1cc Eileen Lord S., 05/20/2015 (methylprednisolone acetate) RPAC Injection Methylprednisolone acetate Eileen Lord, 02/17/2015 (Depomedrol) 80mg injection RPAC Injection Depomedrol 40mg/1cc Eileen Lord., 02/17/2015 (methylprednisolone acetate) RPAC Injection Methylprednisolone acetate Eileen Lord, 02/10/2015 (Depomedrol) 80mg injection RPAC Injection Depomedrol 40mg/1cc Eileen Lord S., 02/10/2015 (methylprednisolone acetate) RPAC Injection Methylprednisolone acetate Eileen Lord, 09/10/2014 (Depomedrol) 80mg injection RPAC Injection Methylprednisolone acetate Eileen Lord., 07/23/2014 (Depomedrol) 80mg injection RPAC Injection Depomedrol 40mg/1cc Eileen Lord., 07/23/2014 (methylprednisolone acetate) RPAC Injection Methylprednisolone acetate Eileen Lord, 03/12/2014 (Depomedrol) 80mg injection RPAC Injection Depomedrol 40mg/1cc Eileen Lord., 03/12/2014 (methylprednisolone acetate) RPAC Injection Depomedrol 40mg/1cc Eileen Lord, 02/26/2014 (methylprednisolone acetate) RPAC Injection Methylprednisolone acetate Eileen Lord, 02/13/2014 (Depomedrol) 80mg injection RPAC Injection Immunizations CPT Code Status Date Vaccine Lot # [id number] Given Unknown Influenza Virus Split Children 6-35 Mo Of Age Intramuscular Use Vital Signs Date Vital Result Comment 12/06/2018 10:45am BP Systolic 126 mmHg BP Diastolic 76 mmHg Body Temperature 98.7 F Heart Rate 88 /min Height 66.5 inches 5'6.50" Weight 277.00 lb BMI (Body Mass Index) 44.0 kg/m2 BSA (Body Surface Area) 2.31 m2 [place] body weight in kilograms 60 kg O2 % BldC Oximetry 96 % 11/01/2018 10:05am BP Systolic 126 mmHg BP Diastolic 76 mmHg Body Temperature 97.3 F Heart Rate 58 /min Height 66.5 inches 5'6.50" Weight 284.00 lb BMI (Body Mass Index) 45.1 kg/m2 BSA (Body Surface Area) 2.33 m2 [place] body weight in kilograms 60 kg O2 % BldC Oximetry 97 % Results Test Date Facility Test Result H/L Range Note Basic Metabolic 08/27/2018 [facility] Glucose 103 mg/dL Normal 74-106 1 Panel [address] [place] [id number] [phone] BUN 15 mg/dL Normal 7-18 Creatinine 0.7 mg/dL Normal 0.6-1.3 Glom Filtration Rate, Estimate >60 mL/min >60 If >60 mL/min >60 2 BUN/Creat 21.4 ratio Sodium 140 mmol/L Normal 136-145 Potassium 4.2 mmol/L Normal 3.5-5.1 Chloride 108 mmol/L High 98-107 Carbon Dioxide 27 mmol/L Normal 21-32 Anion Gap 5 mEq/L Low 8-16 Calcium 9.0 mg/dL Normal 8.5-10.1 1 N20.0 N28.1 R31.21 2 Note: Persistent reduction for 3 months or more in an eGFR <60 mL/min/1.73 m2 defines CKD. Patients with eGFR values >/=60 mL/min/1.73 m2 may also have CKD if evidence of persistent proteinuria is present. The original MDRD equation for estimated GFR is not valid for patients less than 18 years of age. Additional information may be found at www.kdoqi.org. Procedures Date Code Description Status 12/06/2018 Asp./Injection major joint Completed 12/06/201823412 Asp./Injection major joint Completed 11/01/201825560 Asp./Injection major joint Completed 11/01/201878012 Asp./Injection major joint Completed 10/29/201869485 Asp./Injection major joint Completed 09/20/2018 Aspiration/Injection joint Completed intermediate(wrist/ankle/elbow/olbursa 09/20/2018 Aspiration/Injection joint Completed intermediate(wrist/ankle/elbow/olbursa 09/07/201801321 Asp./Injection major joint Completed 09/07/201838257 Asp./Injection major joint Completed 08/02/201881740 Asp./Injection major joint Completed 08/02/201853656 Asp./Injection major joint Completed 06/21/2018 84393 Radiology, Wrist Complete Completed 06/21/2018 23934 Radiology, Wrist Complete Completed 06/21/201859313 Aspiration/Injection joint Completed intermediate(wrist/ankle/elbow/olbursa 06/21/2018 Aspiration/Injection joint Completed intermediate(wrist/ankle/elbow/olbursa 12/30/2013 [id number] Mammogram Completed 11/13/2013 [id number] Mammogram Completed 07/23/2010 [id number] Mammogram Completed Medical Devices Description No Information Available Encounters Type Date Location Provider Dx Diagnosis Office Visit 10/29/2018 Orthopaedic Office Lindsay Campbell, M75.42 Impingement 11:15a syndrome of left shoulder S46.002D Unsp inj musc/tend the rotator cuff of l shoulder, subs M19.012 Primary osteoarthritis, left shoulder Office Visit 10/16/2018 11:00a Orthopaedic Adrian M75.42 Impingement Office MD Lindsay syndrome of left shoulder S46.002S Unsp inj musc/tend the rotator cuff of l shoulder, sequela G56.21 Lesion of ulnar nerve, right upper limb G56.22 Lesion of ulnar nerve, left upper limb Office Visit 09/11/2018 1:00p Urology Kevin Johnson, N20.0 Calculus of kidney PA N28.1 Cyst of kidney, acquired Office Visit 09/11/2018 11:00a [facility] S46.002D Unsp inj Office MD Lindsay musc/tend the rotator cuff of l shoulder, subs G56.21 Lesion of ulnar nerve, right upper limb G56.22 Lesion of ulnar nerve, left upper limb W19.xxxA Unspecified fall, initial encounter Office Visit 08/27/2018 4:15p Urology Kevin Johnson, N20.0 Calculus of kidney PA N28.1 Cyst of kidney, acquired Office Visit 06/21/2018 10:15a Orthopaedic Office Lindsay Campbell, G56.03 Carpal tunnel MD syndrome, bilateral upper limbs Assessments Date Code Description Provider 12/06/2018 S46.002D Unspecified injury of muscle(s) and Lindsay Campbell MD tendon(s) of the rotator cuff of left shoulder, subsequent encounter 12/06/2018 M17.0 Bilateral primary osteoarthritis of knee Eileen Lord , [facility] 12/06/2018 M19.012 Primary osteoarthritis, left shoulder Lindsay Campbell MD 12/06/2018 M25.562 Pain in left knee Eileen Lord, [facility] 12/06/2018 S46.002S Unspecified injury of muscle(s) and Lindsay Campbell MD tendon(s) of the rotator 12/06/2018 M25.561 Pain in right knee LordEileen amezquita., [facility] 11/01/2018 M70.62 Trochanteric bursitis, left hip Eileen Lord S., [facility] 11/01/2018 M70.61 Trochanteric bursitis, right hip Eileen Lord S., [facility] 10/29/2018 M75.42 Impingement syndrome of left shoulder Lindsay Campbell MD 10/29/2018 S46.002D Unspecified injury of muscle(s) and Lindsay Campbell MD tendon(s) of the rotator cuff of left shoulder, subsequent encounter 10/29/2018 M19.012 Primary osteoarthritis, left shoulder Lindsay Campbell MD 10/16/2018 M75.42 Impingement syndrome of left shoulder Lindsay Campbell MD 10/16/2018 S46.002S Unspecified injury of muscle(s) and Lindsay Campbell MD tendon(s) of the rotator 10/16/2018 G56.21 Lesion of ulnar nerve, right upper limb Lindsay Campbell MD 10/16/2018 G56.22 Lesion of ulnar nerve, left upper limb Lindsay Campbell MD 09/20/2018 M19.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, right ankle and Eileen Lord S., [facility] foot 09/20/2018 M19.072 Primary osteoarthritis, left ankle and Eileen Lord , [facility] foot 09/11/2018 N20.0 Calculus of kidney Kevin Johnson PA 09/11/2018 S46.002D Unspecified injury of muscle(s) and Lindsay Campbell MD tendon(s) of the rotator 09/11/2018 N28.1 Cyst of kidney, acquired Kevin Johnson PA 09/11/2018 G56.21 Lesion of ulnar nerve, right upper limb Lindsay Campbell MD 09/11/2018 G56.22 Lesion of ulnar nerve, left upper limb Lindsay Campbell MD 09/11/2018 W19.xxxA Unspecified fall, initial encounter Lindsay Campbell MD 09/07/2018 M25.561 Pain in right knee Eileen Lord, [facility] 09/07/2018 M25.562 Pain in left knee Eileen Lord S., [facility] 09/07/2018 M17.0 Bilateral primary osteoarthritis of knee Eileen Lord S. , [facility] 08/27/2018 N20.0 Calculus of kidney Kevin Johnson PA 08/27/2018 N28.1 Cyst of kidney, acquired Kevin Johnson PA 08/02/2018 M70.62 Trochanteric bursitis, left hip Eileen Lord S., [facility] 08/02/2018 M70.61 Trochanteric bursitis, right hip Eileen Lord S., [facility] 06/21/2018 M25.572 Pain in left ankle and joints of left Eileen Lord S. , [facility] foot 06/21/2018 G56.03 Carpal tunnel syndrome, bilateral upper Lindsay Campbell MD limbs 06/21/2018 M25.571 Pain in right ankle and joints of right Eileen Lord S., [facility] foot 06/21/2018 M19.072 Primary osteoarthritis, left ankle and LordEileen S. , [facility] foot 06/21/2018 M19.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, right ankle and Lord, Eileen S., [facility] foot Plan of Treatment Future Appointment(s):01/03/2019 11:15 am - Lindsay Campbell MD at Orthopaedic Dvussl3009/13/2019 11:00 am - Kevin Johnson PA at Yrvfwhj55/17/2019 11:00 am - Eileen Lord RPAC at Orthopaedic Ecijwk4103/28/2019 11:00 am - Eileen Lord [facility] at Orthopaedic Uswwnh5903/07/2019 11:00 am - Eileen Lord [facility] at Orthopaedic Hpywzx4209/11/2018 - Kevin Johnson PAN20.0 Calculus of kidneyComments:4 mm mid pole right-sided stone without any obvious obstruction. We reviewed all for [facility] expulsive therapy. Prescription was faxed for same. Call for reviewed.N28.1 Cyst of kidney, acquiredComments:CT also shows 2 right-sided cysts. No hydronephrosis or solid mass. Functional Status Functional Condition Comment Date Status Dependent with all ADL's Active Mental Status Description No Information Available Referrals Refer to Reason for Referral Status Appt Date Yannick Cardoso MD b/l cubital tunnel syndrome, recurrent Closed 10/19/[address] [place] [address] [phone]
--- OUTSIDE RECORDS SUMMARY | 2018-12-28 08:23 | XMS REPORT ---
:1965 Author Organization [facility] Address [address] [place] [address] Care Team Providers Name Role Phone Jesica Bello Unavailable Unavailable PROBLEMS Type Condition ICD9-CM Code HSC04-ND Code Onset Condition SNOMED Code Dates Status Problem Body mass index Z68.44 Active 754843012 (BMI) 60.0-69.9, adult Problem Excessive and N92.1 Active 42176562 frequent menstruation with irregular cycle Problem Body mass index Z68.41 Active 184988784 (BMI) 40.0-44.9, adult Problem Excessive and N92.0 Active 120256296 frequent menstruation with regular cycle Problem Intramural D25.1 Active 89816768 leiomyoma of uterus Problem Body mass index Z68.42 Active 563315652 (BMI) 45.0-49.9, adult Problem Abnormal findings R93.89 Active 118488616 on diagnostic imaging of other specified body structures ALLERGIES No Information ENCOUNTERS Encounter Location Date [facility] [address] Feb, [place] [id number] [facility] Feb, [place]BGYN [place] [id number] [facility] Oct, [place]BG[place] [id number] [facility] Oct, Intramural leiomyoma of OBGYN [facility], uterus D25.1 ; Excessive [place] [id number] and frequent menstruation with regular cycle N92.0 and Body mass index (BMI) 45.0-49.9, adult Z68.42 [facility] Jul, Intramural leiomyoma of [facility], uterus D25.1 ; Excessive [place] [id number] and frequent menstruation with regular cycle N92.0 and Body mass index (BMI) 40.0-44.9, adult Z68.41 [place] [address] Jun, Intramural leiomyoma of [facility] [place], [place] [id number] uterus D25.1 ; Excessive and frequent menstruation with regular cycle N92.0 and Body mass index (BMI) 60.0-69.9, adult Z68.44 [place] [facility] Jun, Excessive and frequent OBGYN [facility], menstruation with regular [place] [id number] cycle N92.0 ; Intramural leiomyoma of uterus D25.1 and Abnormal findings on diagnostic imaging of other specified body structures R93.89 [place] [facility] Apr, OBG[place] [id number] [facility] Apr, OBG[place] [id number] [facility] 103 Apr, Excessive and frequent OBGYN [facility], menstruation with regular [place] [id number] cycle N92.0 ; Intramural leiomyoma of uterus D25.1 and Abnormal findings on diagnostic imaging of other specified body structures R93.89 [facility] 103 Apr, Excessive and frequent OBGYN [facility], menstruation with regular [place] [id number] cycle N92.0 ; Intramural leiomyoma of uterus D25.1 and Abnormal findings on diagnostic imaging of other specified body structures R93.89 [facility] [facility] Jan, OBGYN [place] [id number] [facility] Jan, Encounter for [facility], gynecological examination [place] [id number] (general) (routine) without abnormal findings Z01.419 ; Excessive and frequent menstruation with regular cycle N92.0 ; Encounter for screening mammogram for malignant neoplasm of breast Z12.31 ; Intramural leiomyoma of uterus D25.1 ; Encounter for screening for malignant neoplasm of colon Z12.11 ; Body mass index (BMI) 45.0-49.9, adult Z68.42 and Abnormal findings on diagnostic imaging of other specified body structures R93.89 [place] [facility] Jan, Leiomyoma of uterus, OBGYN [facility], unspecified D25.9 [place] [id number] [facility] 103 Jan, [facility]ation with regular [place] [id number] cycle N92.0 ; Body mass index (BMI) 60.0-69.9, adult Z68.44 and Intramural leiomyoma of uterus D25.1 [place] [address] Nov, Intramural leiomyoma of [place] [id number] uterus D25.1 ; Body mass index (BMI) 60.0-69.9, adult Z68.44 and Excessive and frequent menstruation with irregular cycle N92.1 [facility] Nov, Biliuria R82.2 [place] [id number] [place] [facility] 103 Nov, Excessive and frequent OBGYN [facility], menstruation with [place] [id number] irregular cycle N92.1 and Intramural leiomyoma of uterus D25.1 [facility] Nov, Intramural leiomyoma of OBGYN [facility], uterus D25.1 ; Excessive [place] [id number] and frequent menstruation with regular cycle N92.0 and Body mass index (BMI) 60.0-69.9, adult Z68.44 [facility] Oct, [place] [id number] [facility] 103 Oct, [place] [id number] [facility] 103 Sep, OBGYN [facility] [id number] [facility] 103 Sep, Excessive and frequent OBGYN [facility], menstruation with [place] [id number] irregular cycle N92.1 and Intramural leiomyoma of uterus D25.1 [facility] 103 Sep, OBGYN [facility] [id number] [facility] Jun, OBGYN [facility], [place] [id number] [facility] 103 Jun, Excessive and frequent OBGYN [facility], menstruation with [place] [id number] irregular cycle N92.1 and Intramural leiomyoma of uterus D25.1 [facility] 103 Jun, Leiomyoma of uterus, OBGYN [facility], unspecified D25.9 and [place] [id number] Unspecified ovarian cyst, right side N83.201 [facility] 103 Jun, Excessive and frequent OBGYN [facility], menstruation with [place] [id number] irregular cycle N92.1 and Intramural leiomyoma of uterus D25.1 [facility] Apr, OBG[place] [id number] [facility] 103 Jan, OBG[place] [id number] [facility] 103 Jan, [facility] gynecological examination [place] [id number] (general) (routine) without abnormal findings Z01.419 ; Excessive and frequent menstruation with irregular cycle N92.1 ; Body mass index (BMI) 60.0-69.9, adult Z68.44 ; Encounter for screening mammogram for malignant neoplasm of breast Z12.31 and Intramural leiomyoma of uterus D25.1 [facility] 103 Dec, OBGYN [facility] [id number] [facility] 103 August, Excessive and frequent OBGYN [facility], menstruation with [place] [id number] irregular cycle N92.1 and Intramural leiomyoma of uterus D25.1 [facility] 103 August, Excessive and frequent OBGYN [facility], menstruation with regular [place] [id number] cycle N92.0 [facility] 103 Jun, OBGYN [facility], [place] [id number] [facility] 103 Jan, Encounter for screening [facility], mammogram for malignant [place] [id number] neoplasm of breast Z12.31 [facility] Jan, Encounter for [facility], gynecological examination [place] [id number] (general) (routine) with abnormal findings Z01.411 ; Excessive and frequent menstruation with regular cycle N92.0 ; Body mass index (BMI) 60.0-69.9, adult Z68.44 ; Intramural leiomyoma of uterus D25.1 and Encounter for screening mammogram for malignant neoplasm of breast Z12.31 [facility] 103 Sep, OBGYN [place] [id number] [facility] 103 August, Leiomyoma of uterus, OBGYN [facility], unspecified D25.9 [place] [id number] [facility] 103 08 Jul, 2015 OBGYN [place] [id number] [facility] 103 Mar, [facility], menstruation with regular [place] [id number] cycle N92.0 ; Body mass index (BMI) 60.0-69.9, adult Z68.44 and Intramural leiomyoma of uterus D25.1 [facility] 07 Jan, 2015 [facility] gy[facility]ological examination [place] [id number] (general) (routine) with abnormal findings Z01.411 ; Encounter for screening mammogram for malignant neoplasm of breast Z12.31 ; Excessive and frequent menstruation with regular cycle N92.0 and Body mass index (BMI) 60.0-69.9, adult Z68.44 [facility] [facility] Dec, [place] [id number] [facility] Dec, [place] [id number] [facility] 103 Dec, Menorrhagia 626.2 ; [facility], Mass Index 60.0-69.9, [place] [id number] adult V85.44 and Hematuria, microscopic 599.72 [place] [address] Dec, Medical [place] [id number] [facility] Nov, [place] [id number] [facility] Nov, [place] [id number] [facility] 103 Nov, Menorrhagia 626.2 ; [facility], Mass Index 60.0-69.9, [place] [id number] adult V85.44 and Hematuria, microscopic 599.72 [facility] Oct, OBG[place] [id number] [facility] Oct, Menorrhagia 626.2 and OBGYN [facility], Body Mass Index W[place] [id number] 60.0-69.9, adult V85.44 [facility] 103 Sep, [place] [id number] [facility] 103 Sep, Menorrhagia 626.2 and OBGYN [facility], Body Mass Index W[place] [id number] 60.0-69.9, adult V85.44 [facility] 103 Sep, OBG[place] [id number] [facility] 103 August, Menorrhagia 626.2 [place] [id number] [facility] Jul, OBG[place] [id number] [facility] 103 Jul, Menorrhagia 626.2 [place] [id number] [facility] 103 Jun, Menorrhagia 626.2 OBG[place] [id number] [facility] 103 Jun, Ovarian cyst NOS 620.2 OBGYN [facility], and Menorrhagia 626.2 [place] [id number] [facility] 103 Jun, Ovarian cyst NOS 620.2 OBG[place] [id number] [facility] 103 May, OBG[place] [id number] [facility] 103 Apr, OBGYN [place], [place] [id number] [facility] 103 Apr, OBG[place] [id number] [facility] 103 Apr, OBG[place] [id number] [facility] 103 Apr, OBG[place] [id number] [facility] 103 Jan, Ovarian cyst NOS 620.2 OBGYN [facility], and Menorrhagia 626.2 [place] [id number] [facility] 103 Jan, Ovarian cyst NOS 620.2 OBGYN [place] [id number] [facility] 103 Dec, Body Mass [facility], 60.0-69.9, adult V85.44 [place] [id number] and Menorrhagia 626.2 [facility] 103 Dec, OBGYN [facility] [id number] [facility] 103 Dec, ROUTINE CHIEF CONTROLLER EXAMINATION [facility], V72.31 ; PAP SMEAR W/O [place] [id number] CHIEF CONTROLLER EXAM V76.2 ; SCREEN MAMMOGRAM NEC V76.12 ; Ovarian cyst NOS 620.2 ; Body Mass Index 60.0-69.9, adult V85.44 and Menorrhagia 626.2 [facility] 103 Dec, Menorrhagia 626.2 and OBGYN [facility], Ovarian cyst NOS 620.2 [place] [id number] [facility] 103 Sep, Menorrhagia 626.2 ; OBGYN [facility], Nonspecific abnormal [place] [id number] findings on examination of genitourinary organs 793.5 and Body Mass Index 60.0-69.9, adult V85.44 [facility] 103 Jun, Menorrhagia 626.2 ; OBGYN [facility], Nonspecific abnormal [place] [id number] findings on examination of genitourinary organs 793.5 and Body Mass Index 60.0-69.9, adult V85.44 [facility] 103 Mar, Menorrhagia 626.2 ; OBGYN [facility], Nonspecific abnormal [place] [id number] findings on examination of genitourinary organs 793.5 ; Body Mass Index 60.0-69.9, adult V85.44 and HEMATURIA NOS 599.70 [place] [address] Mar, [place] [id number] [facility] 103 Feb, Menorrhagia 626.2 ; OBGYN [facility], Nonspecific abnormal [place] [id number] findings on examination of genitourinary organs 793.5 ; Body Mass Index 60.0-69.9, adult V85.44 and HEMATURIA NOS 599.70 [place] [facility] Feb, OBG[place] [id number] [facility] Feb, [place] [id number] [facility] Feb, Menorrhagia 626.2 ; Body OBGYN [facility], Mass Index 50.0-59.9, [place] [id number] adult V85.43 and Nonspecific abnormal findings on examination of genitourinary organs 793.5 [facility] 103 Dec, OBGYN [place], [place] [id number] [facility] 103 Dec, Menorrhagia 626.2 OBGYN [place] [id number] [facility] 103 Dec, Menorrhagia 626.2 and OBGYN [facility], Dysmenorrhea 625.3 [place] [id number] [facility] Dec, Impaired fasting glucose [facility], 790.21 [place] [id number] [facility] Dec, [place] [id number] [facility] Dec, ROUTINE CHIEF CONTROLLER EXAMINATION OBN [facility], V72.31 ; PAP SMEAR W/O W[place] [id number] CHIEF CONTROLLER EXAM V76.2 ; SCREEN MAMMOGRAM NEC V76.12 ; Dysmenorrhea 625.3 and Body Mass Index 50.0-59.9, adult V85.43 IMMUNIZATIONS No Known Immunizations SOCIAL HISTORY Never Assessed REASON FOR REFERRAL FUNCTIONAL STATUS PLAN OF CARE VITAL SIGNS MEDICATIONS Unknown Medications PROCEDURES No Known procedures RESULTS No Results REASON FOR VISIT contact Dr. Waldron Insurance Providers [facility] Health Member Patient Patient Patient Patient Patient Subscriber Subscriber Subscriber Group Insurance Plan Plan Plan Plan ID Relationship Address Phone Name Date of ID Name Date of No Type Insurance Insurance Insurance Coverage to Subscriber Address Phone Name Dates Mock [phone] Mock [place] [id number] [facility] [id number] [address] [facility] [address] Medicaid [phone] Medicaid self [place] [id number] [facility] [address] [facility] [address] d MEDICAL (GENERAL) HISTORY Type Description Date Medical History thyroid disease Medical History sleep apnea Medical History insomnia Medical History asthma Medical History IBS Medical History arthritis L ankle Medical History start of a hernia in belly Medical History Dysmenorrhea Medical History Menorrhagia Medical History fibromyalgia Medical History roland phenomena Medical History ulnar tunnel syndrome Medical History HTN Medical History rosacea Medical History eczema Medical History anemia Medical History gastroparesis Medical History prediabetes Medical History basal cell carcinoma of nose Surgical History eye surgery as child (age 4, 6, 8) Surgical History sleep apnea surgery 1999 Surgical History gall bladder Surgical History wisdom teeth Surgical History nasal surgery 02/14/13 Surgical History Vaginoscopy/hysteroscopy w/ ureteroscope and Myosure 03-26-13 device: EM polyp and leiomyotous tissue Surgical History right eye surgery 11/28/13 Surgical History left eye surgery 12/12/13 Surgical History tonils out and hyoid suspension 09/18/14 Surgical History umbilical hernia - no mesh 09/23/14 Surgical History Neck surgery 2014 Surgical History vaginoscopy, hysteroscopy, myosure 12/23/14 Surgical History Left ulna nerve moved. 05/2015 Surgical History Basal cell carcinoma removed from nose, skin graft 07/2016 from right ear Surgical History Move ulva nerve left arm 09/22/16 Surgical History thierno n y gastric bypass surgery 09/27/17 Surgical History Diagnostic vaginoscopy/hysteroscopy 12/13/17 Surgical History hysteroscopy & D+C 07/10/18 Hospitalization History see above
--- OUTSIDE RECORDS SUMMARY | 2018-12-28 08:23 | XMS REPORT | Continuity of Care Document ---
:1965 External Reference #:[id number] Author Name Eileen Lord, [facility] Address [address] [place] [id number] Care Team Providers Name Role Phone Chuy Wood PA - Medical Care Team Information Pharmaceutical Sales Representative [phone] Problems Active Problems Provider Date Localized, primary [...] Medications SIG Qnty Indications Ordering Date Provider Atrovenedmar HFA inhale 2 12.9units [place], 08/31/2015 17mcg/Act Aerosol puffs four Bethany, DO times a day if needed Fiber Laxative Chuy Wood, 0.52gm Capsules PA SM Pain Reliever Extra Chuy Wood, Strength PA 500mg Tablets Azelastine HCL (Nasal) 1-2 sprays Rk, 0.1% daily Jesica, WOOD FLOUR MILLER Solution Cetirizine HCL 1 daily EstebanchelseaChuy, 10mg Tablets PA Mirtazapine 1 at hs Chuy Wood, 15mg Tablets PA Tizanidine HCL 1 by mouth Unknown 4mg Capsules three times daily Nystop as needed Chuy Wood, 074137Lonm/GM Powder PA Cevimeline HCL 1 by mouth [...] HCL 1 tablet by 10tabs M75.42 Lindsay aCmpbell, 10/16/2018 - 50mg mouth every 24 MD [...] RPAC Injection Methylprednisolone acetate LordEileen amezquita S., 03/30/2017 (Depomedrol) 80mg injection RPAC Injection Methylprednisolone acetate LordEileen amezquita S., 01/26/2017 (Depomedrol) 80mg injection RPAC Injection Depomedrol 40mg/1cc Eileen Lord S., 01/26/2017 (methylprednisolone acetate) RPAC Injection Methylprednisolone acetate Eileen Lord S., 01/03/2017 (Depomedrol) 80mg injection RPAC Injection Methylprednisolone acetate LordEileen amezquita S., 10/26/2016 (Depomedrol) 80mg injection RPAC Injection Methylprednisolone acetate Eileen Lord S., 09/13/2016 (Depomedrol) 80mg injection RPAC Injection [...] 11/19/2015 (methylprednisolone acetate) RPAC Injection Methylprednisolone acetate Eileen Lord S., 08/20/2015 (Depomedrol) 80mg injection RPAC Injection [...] injection RPAC Injection Depomedrol 40mg/1cc Eileen Lord., 02/10/2015 (methylprednisolone acetate) RPAC Injection Methylprednisolone acetate Eileen Lord, 09/10/2014 (Depomedrol) 80mg injection RPAC Injection Methylprednisolone acetate Eileen Lord, 07/23/2014 (Depomedrol) 80mg injection RPAC Injection Depomedrol 40mg/1cc Eileen Lord, 07/23/2014 (methylprednisolone acetate) RPAC Injection Methylprednisolone acetate Eileen Lord, 03/12/2014 (Depomedrol) 80mg injection RPAC Injection Depomedrol 40mg/1cc Eileen Lord, 03/12/2014 (methylprednisolone acetate) RPAC Injection Depomedrol 40mg/1cc Eileen Lord, 02/26/2014 (methylprednisolone acetate) RPAC Injection Methylprednisolone acetate Eileen Lord, 02/13/2014 (Depomedrol) 80mg injection RPAC Injection Immunizations CPT Code Status Date Vaccine Lot # [id number] Given Unknown Influenza Virus Split Children 6-35 Mo Of Age Intramuscular Use Vital Signs Date Vital Result Comment 12/06/2018 10:45am BP Systolic 126 mmHg BP Diastolic 76 mmHg Body Temperature 98.7 F Heart Rate 88 /min Height 66.5 inches 5'6.50" Weight 277.00 lb BMI (Body Mass Index) 44.0 kg/m2 BSA (Body Surface Area) 2.31 m2 [place] body weight in kilograms 60 kg O2 % BldC Oximetry 96 % 11/01/2018 10:05am BP Systolic 126 mmHg BP Diastolic 76 mmHg Body Temperature 97.3 F Heart Rate 58 /min Height 66.5 inches 5'6.50" Weight 284.00 lb BMI (Body Mass Index) 45.1 kg/m2 BSA (Body Surface Area) 2.33 m2 [place] body weight in kilograms 60 kg O2 % BldC Oximetry 97 % Results Test Date Facility Test Result H/L Range Note Basic Metabolic 08/27/2018 [facility] Glucose 103 mg/dL Normal 74-106 1 Panel [address] [place], [place] [id number] [phone] BUN 15 mg/dL Normal 7-18 Creatinine 0.7 [...] Description Status 12/06/2018 Asp./Injection major joint Completed 12/06/2018 Asp./Injection major joint Completed 11/01/2018 Asp./Injection major joint Completed 11/01/201886133 Asp./Injection major joint Completed 10/29/2018 Asp./Injection major joint Completed 09/20/2018 Aspiration/Injection joint Completed intermediate(wrist/ankle/elbow/olbursa 09/20/2018 Aspiration/Injection joint Completed intermediate(wrist/ankle/elbow/olbursa 09/07/201859587 Asp./Injection major joint Completed 09/07/201828120 Asp./Injection major joint Completed 08/02/2018 Asp./Injection major joint Completed 08/02/201882898 Asp./Injection major joint Completed 06/21/2018 44853 Radiology, Wrist Complete Completed 06/21/2018 00705 Radiology, Wrist Complete Completed 06/21/201834079 Aspiration/Injection joint Completed intermediate(wrist/ankle/elbow/olbursa 06/21/2018 Aspiration/Injection joint Completed intermediate(wrist/ankle/elbow/olbursa 12/30/2013 [id number] Mammogram Completed 11/13/2013 [id number] Mammogram Completed 07/23/2010 [id number] Mammogram Completed Medical Devices Description No Information [...] of kidney, acquired Office Visit 09/11/2018 11:00a Rajeev Campbell S46.002D Unsp inj Office MD Lindsay musc/tend [...] limbs Assessments Date Code Description Provider 12/06/2018 M17.0 Bilateral primary osteoarthritis of knee Eileen Lord , [facility] 12/06/2018 M25.562 Pain in left knee Eileen Lord, [facility] 12/06/2018 M25.561 Pain in right knee Eileen Lord, [facility] 11/01/2018 M70.62 Trochanteric bursitis, left hip Eileen Lord, [facility] 11/01/2018 M70.61 Trochanteric bursitis, right hip Eileen Lord, [facility] 10/29/2018 M75.42 Impingement syndrome of left shoulder [...] M19.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, right ankle and Eileen Lord, [facility] foot 09/20/2018 M19.072 Primary osteoarthritis, left ankle and Eileen Lord , [facility] foot 09/11/2018 N20.0 Calculus of kidney Kevin Johnson PA 09/11/2018 S46.002D Unspecified injury of muscle(s) and Lindsay Campbell MD tendon(s) of the rotator 09/11/2018 N28.1 Cyst of kidney, acquired Kevin Johnson, PA 09/11/2018 G56.21 Lesion of ulnar nerve, right upper limb Lindsay Campbell MD 09/11/2018 G56.22 Lesion of ulnar nerve, left upper limb Lindsay Campbell MD 09/11/2018 W19.xxxA Unspecified fall, initial encounter Lindsay Campbell MD 09/07/2018 M25.561 Pain in right knee Eileen Lord, [facility] 09/07/2018 M25.562 Pain in left knee Eileen Lord, [facility] 09/07/2018 M17.0 Bilateral primary osteoarthritis of knee Eileen Lord , [facility] 08/27/2018 N20.0 Calculus of kidney Kevin Johnson PA 08/27/2018 N28.1 Cyst of kidney, acquired Kevin Johnson PA 08/02/2018 M70.62 Trochanteric bursitis, left hip LordEileen amezquita S., [facility] 08/02/2018 M70.61 Trochanteric bursitis, right hip LordEileen S., [facility] 06/21/2018 M25.572 Pain in left ankle and joints of left LordEileen amezquita S. , [facility] foot 06/21/2018 G56.03 Carpal tunnel syndrome, bilateral upper Lindsay Campbell MD limbs 06/21/2018 M25.571 Pain in right ankle and joints of right LordEileen S., [facility] foot 06/21/2018 M19.072 Primary osteoarthritis, left ankle and LordEileen S. , [facility] foot 06/21/2018 M19.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, right ankle and LordEileen amezquita S., [facility] foot Plan of Treatment Future Appointment(s):09/13/2019 11:00 am - Kevin Johnson PA at [id number] 11:00 am - Eileen Lord RPA at [facility] Txijii8803/28/2019 11: 00 am - Eileen Lord RPAC at [facility] Zugutn7703/07/2019 11:00 am [facility] Functional Status Functional Condition Comment Date Status Dependent with all ADL's Active Mental Status Description No Information Available Referrals Refer to Reason for Referral Status Appt Date Yannick Cardoso MD b/l cubital tunnel syndrome, recurrent Closed 10/19/[address] [place] [address] [phone]
[2018-12-28 08:53] VITALS: BP 122/72
--- NOTE | 2018-12-28 10:03 | ED ---
Lower Extremity - HPI Summary HPI Summary: 53 yr old female with the complaint of left lateral colon soft tissue mass. Onset over the past day. She does not recall this before. She has not had fever or chills. She does not feel sick. She has not had redness. She has some pain that is mild located over the area. - History of Current Complaint Chief Complaint: UCLowerExtremity Stated Complaint: LUMP ON LEFT COLON Time Seen by Provider: 12/28/18 09:02 Hx Last Menstrual Period: 04/17/18 Pain Intensity: 1 - Allergies/Home Medications Allergies/Adverse Reactions: Allergies Allergy/AdvReac Type Severity Reaction Status Date / Time tiotropium Allergy HIVES, Verified 12/28/18 08:28 [From Spiriva with REDDENED HandiHaler] SKIN dust and dust mites Allergy Unknown Uncoded 12/28/18 08:28 Reaction Details avoids NSAIDS AdvReac r/t Uncoded 12/28/18 08:55 gastric bypass 2018 Home Medications: Home Medications Acetaminophen/Diphenhydramine [Sm Pain Reliever Pm Extra 25-500 mg] 1 tab PO QPM 12/28/18 [History Confirmed 12/28/18] Azelastine 0.1% Nasal (NF) [Astepro 0.1% Nasal (NF)] 2 spray BOTH NARES DAILY [History Confirmed 12/28/18] Multivitamin [Multiple Vitamins] 1 cap PO BID 12/28/18 [History Confirmed ] Sm Fiber Capsule 2 tab PO QPM 12/28/18 [History Confirmed 12/28/18] Tizanidine HCl 4 mg PO TID 12/28/18 [History Confirmed 12/28/18] PMH/Surg Hx/FS Hx/Imm Hx Endocrine/Hematology History: Reports: Hx Diabetes - pre, Hx Thyroid Disease - hypothyroid, Hx Anemia - ON FERROUS SULFATE FOR Cardiovascular History: Reports: Hx Hypertension Denies: Hx Pacemaker/ICD Respiratory History: Reports: Hx Asthma, Hx Sleep Apnea GI History: Reports: Hx Gastroesophageal Reflux Disease - ON MEDICATION FOR, Hx Hiatal Hernia, Hx Irritable Bowel History: Reports: Hx Kidney Infection, Hx Kidney Stones Musculoskeletal History: Reports: Hx Arthritis Sensory History: Reports: Hx Cataracts - BILATERAL, Hx Contacts or Glasses - GLASSES Denies: Hx Hearing Aid Opthamlomology History: Reports: Hx Cataracts - BILATERAL, Hx Contacts or Glasses - GLASSES Neurological History: Reports: Hx Headaches - HX OF- NOW RARELY, Hx Migraine - HX OF - NOW RARELY Psychiatric History: Reports: Hx Anxiety - ON MEDICATION FOR, Hx Depression - ON MEDICATION FOR - Surgical History Surgery Procedure, Year, and Place: Gastric bypass 09/2017 [facility], cataracts ages [age], and 8. 2000: Uvula removed and shortened top palate for sleep apnea : [facility]. 2006: [facility]. 2016: L Ulnar nerve: [facility] and R ulnar nerve in 2017;. 2015: T&A and hyoid suspension: Dr Kodi BRAUN. 2015: repair incarcerated hernia: [facility]. 2015: Nasal surgery to open nostril: Dr Kodi BRAUN. D&C x4 : Dr Witt. Eye lens replacement: [facility] Hx Anesthesia Reactions: Yes - 2005-N/V NEXT DAY AFTER SURGERY Infectious Disease History: No Infectious Disease History: Denies: Traveled Outside the [place] in Last 30 Days - Family History Known Family History: Positive: Cardiac Disease - Social History Occupation: Disabled Alcohol Use: None Substance Use Type: Reports: None Smoking Status (MU): Never Smoked Tobacco Have You Smoked in the Last Year: No Review of Systems Constitutional: Negative Positive: Other - left colon soft tissue swelling pain All Other Systems Reviewed And Are Negative: Yes Physical Exam Triage Information Reviewed: Yes Vital Signs On Initial Exam: Initial Vitals Temp Pulse Resp BP Pulse Ox 98.1 F 84 18 122/72 98 12/28/18 08:42 12/28/18 08:42 12/28/18 08:42 12/28/18 08:42 12/28/18 08:42 Vital Signs Reviewed: Yes Appearance: Positive: Obese Skin: Positive: Warm, Skin Color Reflects Adequate Perfusion Head/Face: Positive: Normal Head/Face Inspection Eyes: Positive: EOMI ENT: Positive: Normal ENT inspection Neck: Positive: Nontender Respiratory/Lung Sounds: Positive: Clear to Auscultation, Breath Sounds Present Cardiovascular: Positive: RRR. Negative: Murmur Abdomen Description: Negative: Distended Musculoskeletal: Positive: Other - left lateral colon area with soft tissue mass that is not fluctuant. It is mobile and about 3 cm in diameter with some tenderness. Neurological: Positive: Sensory/Motor Intact, Alert, Oriented to Person Place, Time, Speech Normal Psychiatric: Positive: Normal Diagnostics - Vital Signs Vital Signs Temp Pulse Resp BP Pulse Ox 12/28/18 08:42 98.1 F 84 18 122/72 98 - Laboratory Lab Statement: Any lab studies that have been ordered have been reviewed, and results considered in the medical decision making process. - Radiology left tib fib Radiology Interpretation Completed By: Radiologist - ST mass left colon Lower Extremity Course/Dx - Course Course Of Treatment: 53 yr old with soft tissue mass left lower leg. She has a general surgeon. It may be infected cystic structure given the relative rapid onset of pain and swelling. Will cover with keflex and refer to Gen surgery for follow up johnny. - Diagnoses Provider Diagnoses: Mass of soft tissue of left lower extremity Discharge ED - Sign-Out/Discharge Documenting (check all that apply): Patient Departure All imaging exams completed and their final reports reviewed: Yes - Discharge Plan Condition: Good Disposition: HOME Prescriptions: Cephalexin CAP* [Keflex CAP*] 500 mg PO QID #40 cap Patient Education Materials: Fine Needle Aspiration Biopsy (DC), Soft Tissue Mass (ED) Referrals: Chuy Wood PA [Primary Care Provider] - 1 Day Josemanuel Donnelly MD [Medical Doctor] - 1 Day - Billing Disposition and Condition Condition: GOOD Disposition: Home
== END 2018-12-28 10:10 | disposition home or self-care (01) ==
LOC: UCCORT 08:10
DX: R22.42 Localized swelling, mass and lump, left lower limb (principal); R73.03 Prediabetes; D64.9 Anemia, unspecified; I10 Essential (primary) hypertension; F41.9 Anxiety disorder, unspecified; F32.9 Major depressive disorder, single episode, unspecified
CPT/HCPCS: 99212; G0463

== ENCOUNTER 2019-02-18 05:42 | Inpatient (IN) | payer OTHER ==
[2019-02-18] MEDS ORDERED: Lactated Ringers 1000 ML Bag* 1,000 ML IV SCH ×2 (06:00→11:00)
[2019-02-18] MEDS ORDERED: Acetaminophen TAB* 325 MG PO ONE (06:00)
[2019-02-18] MEDS ORDERED: Acetaminophen TAB* 325 MG ONE (06:38)
[2019-02-18] MEDS ORDERED: ceFAZolin 1 GM ADVAN(*) 1 GM ADDV.VIAL IVPB ONE (06:38)
[2019-02-18] MEDS ORDERED: Buffered Lidocaine 1% SYRIN* 1 ML/SYRINGE INTRADERM ONE (06:39)
[2019-02-18] MEDS ORDERED: ceFAZolin 2 GM in NS PREMIX(*) 2 GM/100 ML BAG IVPB ONE (06:39)
[2019-02-18] MEDS: Buffered Lidocaine 1% SYRIN* 1 ML/SYRINGE INTRADERM ONE ×2 (06:47→13:08)
[2019-02-18] MEDS ORDERED: Propofol* 10 MG/ML 20 ML BTL ONE (07:22)
[2019-02-18] MEDS ORDERED: Succinylcholine* 20 MG/ML 10 ML VIAL ONE (07:22)
[2019-02-18] MEDS ORDERED: Midazolam* 1 MG/ML 2 ML VIAL (2 MG) ONE (07:22)
[2019-02-18] MEDS ORDERED: ROPIVACAINE 5 MG/ML 30 ML BTL (0.5%) ONE ×2 (07:23→07:34)
[2019-02-18] MEDS ORDERED: fentaNYL* 50 MCG/ML 2 ML VIAL (100 MCG VIAL) ONE (07:23)
[2019-02-18] MEDS ORDERED: Dexmedetomidine* 200 MCG/2 ML 2 ML VIAL ONE (07:23)
[2019-02-18] MEDS ORDERED: Lidocaine 1% MPF ** 5 ML VIAL ONE (07:33)
[2019-02-18] MEDS ORDERED: Lidocaine 2% PF * 5 ML VIAL ONE (08:10)
[2019-02-18] MEDS ORDERED: Metoclopramide IV* 5 MG/ML 2 ML VIAL ONE (08:23)
[2019-02-18] MEDS ORDERED: Dexamethasone IV* 4 MG/ML 1 ML (4 MG) ONE (08:23)
[2019-02-18] MEDS ORDERED: Ondansetron INJ* 2 MG/ML VIAL ONE (08:23)
[2019-02-18] MEDS ORDERED: DiMENhydriNATE IV* 50 MG/ML VIAL IV PUSH PRN (09:00)
[2019-02-18] MEDS ORDERED: oxyCODONE TAB* 5 MG TAB PO PRN (09:00)
[2019-02-18] MEDS ORDERED: Naloxone* 0.4 MG/ML 1 ML VIAL IV PRN (09:00)
[2019-02-18] MEDS ORDERED: HYDROmorphone INJ1* 1 MG/ML SYRINGE IV PRN (09:00)
[2019-02-18] MEDS ORDERED: oxyCODONE TAB* 5 MG TAB ONE (10:42)
[2019-02-18] MEDS ORDERED: Ondansetron INJ* 2 MG/ML VIAL IV PRN (10:51)
[2019-02-18] MEDS ORDERED: diPHENhydraMINE PO* 25 MG PO PRN (10:51)
[2019-02-18] MEDS ORDERED: Magnesium Hydroxide LIQ* 30 ML UDC PO PRN (10:51)
[2019-02-18] MEDS ORDERED: Cyclobenzaprine TAB* 10 MG PO PRN (10:51)
[2019-02-18] MEDS ORDERED: Ondansetron ODT TAB* 4 MG PO PRN (10:51)
[2019-02-18] MEDS ORDERED: diPHENhydraMINE IV* 50 MG/ML 1 ml VIAL (BENADRYL) IV PRN (10:51)
[2019-02-18] MEDS ORDERED: traZODone TAB* 50 MG TAB PO PRN (10:51)
[2019-02-18] MEDS ORDERED: Albuterol HFA INHALER* 8 gm MDI INH PRN (11:19)
[2019-02-18] MEDS ORDERED: Nystatin TOP POWDER* 15 GM BTL TOPICAL PRN (11:19)
[2019-02-18] MEDS ORDERED: ALPRAZolam TAB* 0.5 MG PO PRN (11:19)
[2019-02-18] MEDS: NIFEdipine ER TAB* 30 MG PO SCH (13:07)
[2019-02-18] MEDS: tiZANidine TAB* 2 MG PO SCH ×2 (14:12→20:37)
[2019-02-18] MEDS: Gabapentin CAP(*) 300 MG PO SCH ×2 (14:12→20:38)
--- NOTE | 2019-02-18 14:15 | CONS ---
CC: Dr. Bustillo; GRICELDA Nevarez * CONSULTATION REPORT: DATE OF CONSULT: 02/18/19 PRIMARY CARE PROVIDER: GRICELDA Nevarez. REQUESTING PHYSICIAN: The physician requesting consultation is Dr. Bustillo. REASON FOR CONSULTATION: Comanagement of the patient with history of hypertension status post left ankle replacement. CHIEF COMPLAINT: Left ankle pain. HISTORY OF PRESENT ILLNESS: Alley Mead is a 53-year-old female with history of morbid obesity status post gastric bypass in 2018, who had fracture of the left ankle treated conservatively in and now due to severe osteoarthritis is status post replacement of the left ankle performed by Dr. Bustillo today. Dr. Bustillo service requested for Medicine to see the patient in consultation in regard to co-management of the patient's hypertension. The patient herself stated that she has history of Raynaud phenomenon for which she uses nifedipine but she does not currently have any problems with hypertension. She used to be hypertensive prior to her gastric bypass surgery and that resolved. PAST MEDICAL HISTORY: 1. History of hypothyroidism status post radioactive iodine treatment. 2. History of asthma. 3. Obstructive sleep apnea, on BiPAP at home. 4. Fibromyalgia. 5. Obesity. 6. Hypertension history, resolved. 7. History of Raynaud syndrome. 8. Left ankle fracture and osteoarthritis. 9. The patient has history of incarcerated ventral hernia with necrotic small bowel that was resected and hernia was repaired without a mesh. She is planned to undergo a hernia with mesh in the near future. PAST SURGICAL HISTORY: Include: 1. Cataract surgery. 2. Laparoscopic cholecystectomy. 3. Laparoscopic gastric bypass surgery in 2018. 4. History of uvuloplasty. 5. History of hyoid bone suspension and tonsillectomy. 6. History of ulnar transposition. MEDICATIONS: At home include: 1. Provera tablet 10 mg b.i.d. 2. Diclofenac topical gel 1 application t.i.d. p.r.n. 3. Alprazolam 0.5 mg b.i.d., p.r.n. 4. Gabapentin 300 mg 3 times a day. 5. Ferrous sulfate 325 mg b.i.d. 6. Cymbalta 60 mg b.i.d. 7. Cetirizine 10 mg at bed time. 8. Azelastine nasal spray 2 sprays both nostrils at bed time. 9. Nifedical XL 30 mg daily. 10. Levothyroxine 160 mcg daily. 11. Letrozole 2.5 mg daily. 12. Atrovent inhaler 2 inhalations b.i.d. 13. Tizanidine 4 mg 3 times a day p.r.n. 14. Fiber capsules 2 capsules at bed time. 15. Nystatin topical powder p.r.n. 16. Albuterol inhaler on p.r.n. basis. 17. Tylenol PM 1 tablet q.p.m. p.r.n. ALLERGIES: SPIRIVA. She was told to avoid nonsteroidal antiinflammatory medication due to her gastric bypass. FAMILY HISTORY: Notable for mother with fibromyalgia and migraines who is alive and doing well and father with history of back problems likely spinal stenosis, who was wheelchair bound due to that. SOCIAL HISTORY: The patient denies any tobacco, alcohol or drug use. She lives with her girlfriend Nathaly Portlilo as a surrogate. REVIEW OF SYSTEMS: Please see history of present illness. Other remaining 12 systems were reviewed with the patient and were otherwise negative. PHYSICAL EXAMINATION: Blood pressure 143/69, heart rate of 82 and regular, respiratory rate 16, oxygen saturation 94% on room air, temperature 97.3. General: Very pleasant 53-year-old female with a BMI of 40, who was in no acute distress. Alert, awake and oriented x3. HEENT: Head atraumatic, normocephalic. Eyes: Pupils equal reactive to light and accommodation. Oropharynx is clear. Mucosa moist. Neck: Supple. No JVD. No bruit bilaterally. Cardiovascular: Regular rate and rhythm. No murmur. Respiratory : Clear to auscultation bilaterally. Abdomen: Soft, nontender. Bowel sounds present in all 4 quadrants. Palpable ventral hernia noted above the patient's umbilical with no tenderness. Extremities: There is trace right ankle edema. Left ankle is in cast. Bilateral toes are well perfused with no evidence of cyanosis. Neuro Evaluation: Speech is clear. Cranial nerves II through XII grossly intact. Motor strength is 5/5 bilaterally. DIAGNOSTIC STUDIES/LAB DATA: Currently none. ASSESSMENT AND PLAN: 1. In regards to patient's hypertension. Not a current diagnosis. The patient takes nifedipine for her Raynaud syndrome which she should continue. 2. For hypothyroidism. The patient is recommended to continue her Synthroid. 3. History of asthma and allergies. Azelastine nasal spray is recommended to be continued. 4. For DVT prophylaxis, the patient was placed on Lovenox by the orthopedic service. 5. In regards to patient's status post left ankle repair as per Dr. Bustillo's service. TIME SPENT: Approximately 62 minutes was spent on consultation of this patient. More than half that time was spent [id number] with the patient during the evaluation and history and physical taking. Thank you very much for allowing our services to see the patient in consultation. We will see patient on as needed basis. [id number]/CPS #: [id number] MTDD
[2019-02-18] MEDS: Acetaminophen TAB* 325 MG PO SCH (14:39)
[2019-02-18] MEDS: oxyCODONE TAB* 5 MG TAB PO PRN ×2 (14:39→18:50)
[2019-02-18] MEDS: ceFAZolin 1 GM ADVAN(*) 1 GM in NS 0.9% 50 ML* 50 ML IVPB SCH (17:15)
[2019-02-18] MEDS: NF:Azelastine 0.1% Nasal (NF) 30 ML BTL BOTH NARES SCH (19:33)
[2019-02-18] MEDS: IPRATROPIUM INH SCH (20:21)
[2019-02-18] MEDS: Cetirizine* 10 MG TAB PO SCH (20:38)
[2019-02-18] MEDS: DULoxetine DR CAP* 60 MG CAP.DR PO SCH (20:38)
[2019-02-18] MEDS: Docusate CAP* 100 MG PO SCH (20:38)
[2019-02-18] MEDS: Ferrous Sulfate TAB* 325 MG PO SCH (20:38)
[2019-02-18] MEDS: medroxyPROGESTERone TAB* 10 MG PO SCH (20:39)
[2019-02-18] MEDS: Magnesium Hydroxide LIQ* 30 ML UDC PO SCH (20:39)
--- NOTE | 2019-02-18 23:11 | OP ---
DATE OF OPERATION: 02/18/19 - ROOM #331 DATE OF : 69. SURGEON: Yannick Bustillo MD FACULTY NEUROPSYCHOLOGIST: Kellen Tinajero PA-C PRE-OP DIAGNOSIS: Left tibiotalar osteoarthritis. POST-OP DIAGNOSIS: Left tibiotalar osteoarthritis. OPERATIVE PROCEDURE: Left ankle replacement with Prophecy ankle, 3 mm tibia, 2 mm talus and 6 mm spacer. DESCRIPTION OF PROCEDURE: The patient was taken to the operating room where a longitudinal incision was made over the anterior ankle. We did not penetrate the anterior tibial sheath. We went more through the retinacula between the extensor and the anterior tib. The neurovascular bundle was retracted laterally. We then went full thickness down through the ankle capsule spreading a mediolateral flap. The Prophecy tibia guide was placed over the distal tibia anteriorly and pinned in place. We then replaced the pins for the tibial cutting jig which position was verified with the C-arm. We then cut the distal tibia including mediolateral gutter cuts. The trial tibia was then placed and seemed to fit well. We then used the [employer] talar jig which was placed over the neck of the talus and the front and back pins placed. We then replaced this for the cutting jig and removed the dorsal talar body in a flat cut. The flat cut appeared to be too tight. There was not enough flexion gap for the trial. So, we re-cut this 2 mm distal and then the trial appeared to fit well. The chamfer gutting guide was then attached to the dorsal dome of the talus and the posterior chamfer cut as well as reaming out the anterior chamfer. Again, the trial was then tried on the talus and it was felt that the posterior chamfer cut was undercut in terms of the angles, so this was freehanded to a more suitable angle. We were then able to create the pegs for the anterior talus and the distal tibia and the trial reduction made again which showed satisfactory position with a 6 mm poly insert, 2 mm talus, 3 mm tibia. The final tibia and talus were then pounded into place and 6 mm poly placed. We irrigated thoroughly after x-ray intraoperatively. We closed the anterior fascia with 0 Vicryl sutures, subcu with 3-0 Monocryl, rosalba for the skin and a compression dressing, plaster splint. Blood loss was minimal. [id number]/[facility] #: [id number] [facility]
[2019-02-19] MEDS: Acetaminophen TAB* 325 MG PO SCH ×3 (00:47→15:28)
[2019-02-19] MEDS: ceFAZolin 1 GM ADVAN(*) 1 GM in NS 0.9% 50 ML* 50 ML IVPB SCH ×2 (00:48→08:33)
[2019-02-19] MEDS: oxyCODONE TAB* 5 MG TAB PO PRN ×5 (03:16→20:01)
[2019-02-19] MEDS: Levothyroxine TAB* 150 MCG TAB PO SCH (06:25)
[2019-02-19 07:02] LABS: Mean Platelet Volume 7.1 fL (7.4-10.4); Platelet Count 202 10^3/uL (150-450)
[2019-02-19] MEDS: Vitamin THERAPEUTIC TAB PO SCH (07:10)
[2019-02-19] MEDS: Gabapentin CAP(*) 300 MG PO SCH ×3 (07:10→21:59)
[2019-02-19] MEDS: Docusate CAP* 100 MG PO SCH ×2 (07:10→22:00)
[2019-02-19] MEDS: Magnesium Hydroxide LIQ* 30 ML UDC PO SCH ×2 (07:10→22:00)
[2019-02-19] MEDS: Ferrous Sulfate TAB* 325 MG PO SCH ×2 (07:10→21:59)
[2019-02-19] MEDS: CMCS: Letrozole (NF) 2.5 MG TAB PO SCH (08:36)
[2019-02-19] MEDS: medroxyPROGESTERone TAB* 10 MG PO SCH ×2 (08:36→22:11)
[2019-02-19] MEDS: tiZANidine TAB* 2 MG PO SCH ×3 (08:37→22:11)
[2019-02-19] MEDS: IPRATROPIUM INH SCH ×2 (08:37→19:27)
[2019-02-19] MEDS: DULoxetine DR CAP* 60 MG CAP.DR PO SCH ×2 (08:37→22:11)
[2019-02-19] MEDS ORDERED: NIFEdipine ER TAB* 30 MG PO SCH (09:00)
--- NOTE | 2019-02-19 09:31 | PN ---
Progress Note - Progress Note Date of Service: 02/19/19 SOAP: Subjective: []Pt seen at bedside, she is feeling well pain 4/10 overnight improved this morning. Denies CP, SOB, dizziness, nausea. Objective: []Gen: Appears well, NAD LLE: Left short left splint CDI. Able to f/e MTPs, sensation intact to light touch distally, cap refill less than two seconds distally R calf supple and nontender Assessment: []POD 1 sp Left total ankle replacement Plan: []NWB LLE Keep splint CDI lovenox for DVT prophy Desires rehab, CM aware to seek placement Vital Signs Temp 97.9 F 02/19/19 07:25 Pulse 76 02/19/19 07:25 Resp 16 02/19/19 07:25 BP 132/59 02/19/19 07:25 Pulse Ox 99 02/19/19 07:25 Intake & Output 02/18/19 02/19/19 02/19/19 18:59 06:59 18:59 Intake Total 2130 2685 55 Output Total 400 1350 400 Balance 1730 1335 -345 Intake: IV Fluids 1250 1035 LR 1200 985 cefazolin 50 IVPB 55 cefazolin 55 Oral 880 1650 Output: Urine 400 1350 400 Other: Estimated Void Large Large # Voids 1 Laboratory Last Values Plt Count 202 10^3/uL (150-450) 02/19/19 06:27 MPV 7.1 fL (7.4-10.4) L 02/19/19 06:27 POC Glucose (mg/dL) 100 mg/dL (70-100) 02/18/19 06:57
[2019-02-19] MEDS: NIFEdipine ER TAB* 30 MG PO SCH (12:49)
[2019-02-19] MEDS: Enoxaparin(*) 40 MG/0.4 ML SYR SUBCUT SCH (12:49)
[2019-02-19] MEDS: Cetirizine* 10 MG TAB PO SCH (21:59)
[2019-02-19] MEDS: NF:Azelastine 0.1% Nasal (NF) 30 ML BTL BOTH NARES SCH (22:05)
[2019-02-20] MEDS: Acetaminophen TAB* 325 MG PO SCH ×4 (00:03→23:57)
[2019-02-20] MEDS: oxyCODONE TAB* 5 MG TAB PO PRN ×3 (00:05→19:21)
[2019-02-20 04:56] LABS: Hematocrit 31 % (35-47); Hemoglobin 10.3 g/dL (12.0-16.0); Mean Platelet Volume 6.9 fL (7.4-10.4); Platelet Count 176 10^3/uL (150-450)
[2019-02-20 05:09] LABS: EGFR African American 135.3 (>60); EGFR Non-African American 111.8 (>60)
[2019-02-20] MEDS: Levothyroxine TAB* 150 MCG TAB PO SCH (05:35)
[2019-02-20] MEDS: IPRATROPIUM INH SCH ×2 (07:35→20:08)
[2019-02-20] MEDS: Magnesium Hydroxide LIQ* 30 ML UDC PO SCH ×2 (07:50→21:35)
[2019-02-20] MEDS: medroxyPROGESTERone TAB* 10 MG PO SCH ×2 (07:50→21:34)
[2019-02-20] MEDS: CMCS: Letrozole (NF) 2.5 MG TAB PO SCH (07:51)
[2019-02-20] MEDS: Docusate CAP* 100 MG PO SCH ×2 (07:51→21:35)
[2019-02-20] MEDS: tiZANidine TAB* 2 MG PO SCH ×3 (07:51→21:34)
[2019-02-20] MEDS: Vitamin THERAPEUTIC TAB PO SCH (07:51)
[2019-02-20] MEDS: Gabapentin CAP(*) 300 MG PO SCH ×3 (07:51→21:35)
[2019-02-20] MEDS: DULoxetine DR CAP* 60 MG CAP.DR PO SCH ×2 (07:52→21:35)
[2019-02-20] MEDS: Ferrous Sulfate TAB* 325 MG PO SCH ×2 (07:52→21:35)
[2019-02-20] MEDS ORDERED: Bisacodyl SUPP* 10 MG SUPP PR PRN (10:51)
[2019-02-20] MEDS: NIFEdipine ER TAB* 30 MG PO SCH (12:03)
[2019-02-20] MEDS: Enoxaparin(*) 40 MG/0.4 ML SYR SUBCUT SCH (12:03)
--- NOTE | 2019-02-20 15:30 | PN ---
Progress Note - Progress Note Date of Service: 02/20/19 SOAP: Subjective: []Pt seen at bedside. She feels well, left ankle is sore but no severe pain. Denies CP, SOB, dizziness, nausea. Objective: []Gen: Appears well, NAD LLE: Left short left splint CDI. Able to f/e MTPs, sensation intact to light touch distally, cap refill less than two seconds distally R calf supple and nontender Assessment: []POD 2 sp Left total ankle replacement Plan: []NWB LLE Keep splint CDI lovenox for DVT prophy Desires rehab, [facility] tomorrow Vital Signs Temp 97.9 F 02/20/19 15:12 Pulse 93 02/20/19 15:12 Resp 18 02/20/19 15:12 BP 113/52 02/20/19 15:12 Pulse Ox 95 02/20/19 11:20 Intake & Output 02/19/19 02/20/19 02/20/19 18:59 06:59 18:59 Intake Total 375 1100 320 Output Total 850 0 0 Balance -475 1100 320 Intake: IVPB 55 cefazolin 55 Oral 320 1100 320 Output: Urine 850 0 0 Other: Estimated Void Large # Voids 1 Laboratory Last Values Hgb 10.3 g/dL (12.0-16.0) L 02/20/19 04:36 Hct 31 % (35-47) L 02/20/19 04:36 Plt Count 176 10^3/uL (150-450) 02/20/19 04:36 MPV 6.9 fL (7.4-10.4) L 02/20/19 04:36 BUN 19 mg/dL (6-24) 02/20/19 04:36 Creatinine 0.57 mg/dL (0.51-0.95) 02/20/19 04:36 Est GFR ( Amer) 135.3 (>60) 02/20/19 04:36 Est GFR (Non-Af Amer) 111.8 (>60) 02/20/19 04:36 POC Glucose (mg/dL) 100 mg/dL (70-100) 02/18/19 06:57
[2019-02-20] MEDS: NF:Azelastine 0.1% Nasal (NF) 30 ML BTL BOTH NARES SCH (21:35)
[2019-02-20] MEDS: Cetirizine* 10 MG TAB PO SCH (21:35)
[2019-02-21] MEDS: oxyCODONE TAB* 5 MG TAB PO PRN ×2 (03:40→13:39)
[2019-02-21] MEDS: Levothyroxine TAB* 150 MCG TAB PO SCH (05:18)
[2019-02-21 06:57] LABS: Mean Platelet Volume 7.3 fL (7.4-10.4); Platelet Count 182 10^3/uL (150-450)
[2019-02-21 08:04] VITALS: BP 118/57
[2019-02-21] MEDS: Ferrous Sulfate TAB* 325 MG PO SCH (08:17)
[2019-02-21] MEDS: Vitamin THERAPEUTIC TAB PO SCH (08:18)
[2019-02-21] MEDS: Gabapentin CAP(*) 300 MG PO SCH ×2 (08:18→13:39)
[2019-02-21] MEDS: Acetaminophen TAB* 325 MG PO SCH (08:18)
[2019-02-21] MEDS: DULoxetine DR CAP* 60 MG CAP.DR PO SCH (08:18)
[2019-02-21] MEDS: medroxyPROGESTERone TAB* 10 MG PO SCH (08:19)
[2019-02-21] MEDS: CMCS: Letrozole (NF) 2.5 MG TAB PO SCH (08:19)
[2019-02-21] MEDS: Docusate CAP* 100 MG PO SCH (08:19)
[2019-02-21] MEDS: Magnesium Hydroxide LIQ* 30 ML UDC PO SCH (08:20)
[2019-02-21] MEDS: tiZANidine TAB* 2 MG PO SCH (08:20)
[2019-02-21] MEDS: IPRATROPIUM INH SCH (08:37)
--- NOTE | 2019-02-21 08:48 | PN ---
Progress Note - Progress Note Date of Service: 02/21/19 SOAP: Subjective: []Pt seen at bedside. She feels well without LLE pain. Denies fever, chills, CP , SOB, nausea, dizziness. Objective: []Gen: Appears well, NAD LLE: Left short left splint CDI. Able to f/e MTPs, sensation intact to light touch distally, cap refill less than two seconds distally R calf supple and nontender Assessment: []POD 3 sp Left total ankle replacement Plan: []NWB LLE Keep splint CDI lovenox for DVT prophy Desires rehab, [facility] today awaiting insurance auth Laboratory Last Values Hgb 10.3 g/dL (12.0-16.0) L 02/20/19 04:36 Hct 31 % (35-47) L 02/20/19 04:36 Plt Count 182 10^3/uL (150-450) 02/21/19 06:38 MPV 7.3 fL (7.4-10.4) L 02/21/19 06:38 BUN 19 mg/dL (6-24) 02/20/19 04:36 Creatinine 0.57 mg/dL (0.51-0.95) 02/20/19 04:36 Est GFR ( Amer) 135.3 (>60) 02/20/19 04:36 Est GFR (Non-Af Amer) 111.8 (>60) 02/20/19 04:36 POC Glucose (mg/dL) 100 mg/dL (70-100) 02/18/19 06:57 Vital Signs Temp 97.2 F 02/21/19 08:03 Pulse 71 02/21/19 08:03 Resp 18 02/21/19 08:18 BP 118/57 02/21/19 08:03 Pulse Ox 95 02/21/19 08:03 Intake & Output 02/20/19 02/21/19 02/21/19 18:59 06:59 18:59 Intake Total 320 1100 Output Total 0 1150 Balance 320 -50 Intake: Oral 320 1100 Output: Urine 0 1150
--- NOTE | 2019-02-21 08:53 | DS ---
Orthopedic Discharge Summary - Discharge Summary Date of Admission:02/18/19 Date of Discharge: 02/21/19 Date of Surgery: 02/18/19 Attending Orthopedic Provider: Dr Diez Pre-operative Diagnosis: Left ankle pain Operative Procedure: left total ankle replacement Disposition of Patient: [facility] Condition of Patient: stable History: OLLIE GR is a 53 year old F with years of increasingly severe left ankle pain. Patient has failed conservative management and has elected to undergo a left total ankle replacement Hospital Course: OLLIE was admitted to [facility] on 02/18/19. Patient underwent a left total ankle replacement without complication followed by a brief recovery in PACU and transfer to the Short Stay Surgical Unit in stable condition. Our hospitalist service, physical therapy and occupational therapy also participated in this patients care. Post-op day 1,2,3: patient was alert and in no acute distress. Dressing was clean, dry and intact. Operative extremity flexion/ extension of MTPs intact, sensation intact to light touch distally, cap refill less than two seconds distally. Patient was deemed to be medically and orthopedically stable for [facility] Medications Medication Instructions Recorded Confirmed Type ALPRAZolam TAB* Xanax TAB* 0.5 mg PO BID PRN 07/13/16 02/18/19 History Gabapentin CAP(*) [Neurontin 300 300 mg PO TID 07/13/16 02/18/19 History CAP(*)] Ipratropium HFA INHALER(NF) 2 puff INH BID 07/13/16 02/18/19 History [Atrovent Hfa Inhaler(NF)] Levothyroxine TAB* [Synthroid 100 150 mcg PO QAM 07/13/16 02/18/19 History MCG TAB*] medroxyPROGESTERone TAB* [Provera 10 mg PO BID 07/13/16 02/18/19 History TAB*] DULoxetine DR CAP* [Cymbalta CAP*] 60 mg PO BID 09/27/18 02/18/19 History Letrozole 2.5 mg PO QAM 09/27/18 02/18/19 History Nifedical Xl 30 mg PO 1230 09/27/18 02/18/19 History Nystatin TOP POWDER* 1 applic TOPICAL BID PRN 09/27/18 01/31/19 History Acetaminophen/Diphenhydramine [Sm 1 tab PO QPM PRN 12/28/18 01/31/19 History Pain Reliever Pm Caplet] Albuterol inh POWDER (NF) [Proair 108 mcg IN Q4H PRN 12/28/18 01/31/19 History Respiclick] Azelastine 0.1% Nasal (NF) 2 spray BOTH NARES BEDTIME 12/28/18 02/18/19 History [Astepro 0.1% Nasal (NF)] Cetirizine HCl [All Day Allergy] 10 mg PO BEDTIME 12/28/18 02/18/19 History Ferrous Sulfate TAB* 325 mg PO BID 12/28/18 02/18/19 History Sm Fiber Capsule 2 cap PO BEDTIME 12/28/18 02/18/19 History Tizanidine HCl 4 mg PO TID 12/28/18 02/18/19 History Diclofenac 1% GEL (NF) 1 applic TOPICAL TID PRN 02/18/19 02/18/19 History Acetaminophen TAB* [Tylenol TAB*] 975 mg PO 0000,0800,1600 tab 02/21/19 Rx Docusate CAP* [Colace Cap*] 100 mg PO BID cap 02/21/19 Rx Enoxaparin(*) [Lovenox(*)] 40 mg SUBCUT Q24H syringe 02/21/19 Rx oxyCODONE TAB* [Roxycodone TAB 5 5 mg PO Q4H PRN tab MDD 10 02/21/19 Rx mg*] oxyCODONE TAB* [Roxycodone TAB 5 10 mg PO Q4H PRN tab MDD 10 02/21/19 Rx mg*] Discharge Instructions following Orthopedic Surgery: Activity: * Nonweightbearing operative extremity * Continue physical therapy and occupational therapy exercises as shown Wound care: * keep splint clean, dry and intact until follow up visit with Dr Diez Call Orthopedic office for: * Increased drainage * Redness * Increased pain * numbness or tingling * inability to wiggle toes of operative extremity * Fever Go to ER with shortness of breath or chest pain. Diet: * Regular diet * Increase fluids and fiber to prevent constipation. * Continue to use stool softeners, call office if no bowel motion within 48 hours. Medications See Home Medication List in your packet for medications that you should take after discharge. DVT Prophylaxis: Lovenox Dosing: [40 mg subcutaneous injection once a day during period of immobilization. Orthopedics to instruct when to stop at follow up appointment Pain Control: oxycodone 5 mg 1 tab for moderate pain and 2 tabs for severe pain by mouth every 4 hours as needed for pain. Maximum of 8 tabs per day. Wean off as soon as pain allows and hold for sedation Antibiotics are required prior to any dental work. FOLLOW UP: Follow up with [[facility]] Within 10-14 days post op, call for appointment Please call our office with any questions or concerns ([phone]) No RX needed
[2019-02-21] MEDS: Enoxaparin(*) 40 MG/0.4 ML SYR SUBCUT SCH (11:45)
[2019-02-21] MEDS: NIFEdipine ER TAB* 30 MG PO SCH (11:45)
[2019-02-21] MEDS ORDERED: tiZANidine TAB* 2 MG PO SCH (14:00)
== END 2019-02-21 14:00 | DRG 313 ==
LOC: OR 05:42 → SSU 10:51 → OBSVTOIN 11:00
PROVIDERS: ADMIT Orthopaedic Surgery; ATTEND Orthopaedic Surgery
PROC: 0SRG0JZ Replacement of Left Ankle Joint with Synthetic Substitute, Open Approach (ICD-10-PCS; principal; 2019-02-18 07:30)
DX: M19.172 Post-traumatic osteoarthritis, left ankle and foot (principal); Z68.42 Body mass index [BMI] 45.0-49.9, adult; E66.01 Morbid (severe) obesity due to excess calories; I10 Essential (primary) hypertension; I73.00 Raynaud's syndrome without gangrene; G47.33 Obstructive sleep apnea (adult) (pediatric); M79.7 Fibromyalgia; E03.9 Hypothyroidism, unspecified; F32.9 Major depressive disorder, single episode, unspecified; L30.9 Dermatitis, unspecified; J45.30 Mild persistent asthma, uncomplicated; Z79.899 Other long term (current) drug therapy; Z98.84 Bariatric surgery status; Z88.8 Allergy status to other drugs, medicaments and biological substances; Z87.891 Personal history of nicotine dependence
CPT/HCPCS: 36415; 76000; 82565; 84520; 85014; 85018; 85049; 94640; A9270-GY; C1713; C1776; J0330; J0690; J1100; J1650; J2250; J2405; J2704; J2765; J2795; J3010

== ENCOUNTER 2020-04-20 05:52 | Inpatient (IN) ==
[2020-04-20] MEDS ORDERED: Famotidine IV 10 MG/ML 2 ml VIAL (20 mg) IV ONE (06:00)
[2020-04-20] MEDS ORDERED: Lactated Ringers 1000 ml BAG 1,000 ML IV SCH (06:00)
[2020-04-20] MEDS ORDERED: Buffered Lidocaine 1% SYRIN 1 ml INTRADERM ONE ×2 (06:00→06:23)
[2020-04-20] MEDS ORDERED: Famotidine IV 10 MG/ML 2 ml VIAL (20 mg) ONE (06:23)
[2020-04-20] MEDS ORDERED: ceFAZolin 1 GM ADVAN 1 GM ADDV.VIAL IVPB ONE ×2 (06:43→12:41)
[2020-04-20] MEDS ORDERED: Heparin 5000 UNITS/ML 1 mL VIAL ONE (06:43)
[2020-04-20] MEDS ORDERED: ceFAZolin 2 GM PREMIX 2 GM/50 ML BAG ONE ×2 (06:43→12:41)
[2020-04-20] MEDS ORDERED: Bupivacaine 0.25% SDV 30 ML ONE (07:12)
[2020-04-20] MEDS ORDERED: fentaNYL 250 mcg/5 ml 50 MCG/ML 5 ml VIAL (250 MCG) ONE ×2 (07:17→13:18)
[2020-04-20] MEDS ORDERED: Midazolam 2 mg/2 ml VIAL 1 mg/ml 2 ml VIAL (2 mg) ONE (07:18)
[2020-04-20] MEDS ORDERED: Rocuronium 50 mg VIAL 10 mg/ml 5 ml VIAL (50 mg) ONE ×3 (07:18→12:40)
[2020-04-20] MEDS ORDERED: Propofol 10 MG/ML 20 ML BTL ONE (07:22)
[2020-04-20] MEDS ORDERED: Dexamethasone IV 4 MG/ML VIAL 1 ml VIAL ONE (07:22)
[2020-04-20] MEDS ORDERED: Sugammadex 500 MG/5 ML 5 ml VIAL IV PUSH ONE (07:22)
[2020-04-20] MEDS ORDERED: Lidocaine 2% PF 5 ML VIAL ONE (07:23)
[2020-04-20] MEDS ORDERED: Phenylephrine IV 10 MG/ML 1 ml VIAL ONE (07:23)
[2020-04-20] MEDS ORDERED: DiMENhydriNATE IV 50 mg/ml 1 ml VIAL IV PUSH PRN (09:19)
[2020-04-20] MEDS ORDERED: Naloxone 0.4 mg VIAL 0.4 mg/ml 1 ml VIAL IV PRN (09:19)
[2020-04-20] MEDS ORDERED: Acetaminophen IV 1 GM/100ML 100 ML ONE (09:42)
[2020-04-20] MEDS ORDERED: Ketamine HCL 50 mg/ml 10 ml VIAL (500 MG) ONE (09:42)
[2020-04-20] MEDS ORDERED: HYDROmorphone 1 MG/1 ML SYRINGE ONE ×3 (10:06→14:17)
[2020-04-20] MEDS ORDERED: DiMENhydriNATE IV 50 mg/ml 1 ml VIAL ONE (14:17)
[2020-04-20] MEDS: HYDROmorphone 1 MG/1 ML SYRINGE IV PRN ×4 (14:19→14:58)
[2020-04-20] MEDS ORDERED: Azelastine 0.1% Nasal (NF) 30 ML BTL BOTH NARES PRN (14:47)
[2020-04-20] MEDS ORDERED: Albuterol HFA INHALER 8 gm MDI INH PRN (14:47)
[2020-04-20] MEDS ORDERED: Morphine PCA ADULT 5 MG/ML 30 ML PCA SCH (15:00)
[2020-04-20] MEDS: Lactated Ringers 1000 ml BAG 1,000 ML IV SCH ×2 (15:53→23:22)
[2020-04-20] MEDS: DULoxetine DR 60 mg CAP PO SCH (21:32)
[2020-04-20] MEDS: Heparin 5000 UNITS/ML 1 mL VIAL SUBCUT SCH (21:32)
[2020-04-21 05:09] LABS: ABS Eosinophils 0.1 10^3/ul (0-0.6); ABS Lymphocytes 0.7 10^3/ul (1.0-4.8); ABS Monocytes 0.6 10^3/ul (0-0.8); ABS Neutrophils 7.2 10^3/ul (1.5-7.7); Eosinophil % 1.1 %; Hematocrit 31 % (35-47); Hemoglobin 10.9 g/dL (12.0-16.0); Lymphocyte % 8.4 %; Mean Corpuscular HGB Conc 35 g/dL (31-36); Mean Corpuscular Hemoglobin 30 pg (27-31); Mean Corpuscular Volume 86 fL (80-97); Mean Platelet Volume 6.9 fL (7.4-10.4); Platelet Count 219 10^3/uL (150-450); Red Blood Count 3.65 10^6 /uL (3.70-4.87); Red Cell Distribution Width 14 % (10-15); White Blood Count 8.6 10^3/uL (3.5-10.8)
[2020-04-21 05:40] LABS: BUN/Creatinine Ratio 19.6 (8-20); Calcium 8.3 mg/dL (8.6-10.3); EGFR African American 137.6 (>60); EGFR Non-African American 113.7 (>60); Potassium 3.6 mmol/L (3.5-5.0)
[2020-04-21] MEDS: Heparin 5000 UNITS/ML 1 mL VIAL SUBCUT SCH ×3 (05:54→21:30)
[2020-04-21] MEDS: Lactated Ringers 1000 ml BAG 1,000 ML IV SCH ×2 (07:10→20:30)
[2020-04-21] MEDS: DULoxetine DR 60 mg CAP PO SCH ×2 (08:36→20:12)
[2020-04-21] MEDS ORDERED: oxyCODONE/Acetamin 5/325 mg TAB PO PRN (09:01)
[2020-04-22] MEDS: Lactated Ringers 1000 ml BAG 1,000 ML IV SCH ×2 (03:11→10:10)
[2020-04-22] MEDS: Heparin 5000 UNITS/ML 1 mL VIAL SUBCUT SCH ×3 (05:41→22:15)
[2020-04-22] MEDS: DULoxetine DR 60 mg CAP PO SCH ×2 (09:41→20:27)
[2020-04-22] MEDS: oxyCODONE/Acetamin 5/325 mg TAB PO PRN ×2 (13:33→18:24)
[2020-04-23] MEDS: oxyCODONE/Acetamin 5/325 mg TAB PO PRN ×2 (00:48→09:45)
[2020-04-23] MEDS: Heparin 5000 UNITS/ML 1 mL VIAL SUBCUT SCH ×2 (05:24→13:59)
[2020-04-23] MEDS: DULoxetine DR 60 mg CAP PO SCH (08:38)
[2020-04-23 11:03] VITALS: BP 113/59
== END 2020-04-23 14:25 | disposition home or self-care (01) | DRG 227 ==
LOC: AA 05:52 → EDSTATUS 10:45 → SSU 16:17
PROVIDERS: ADMIT Surgery; ATTEND Surgery